=== PATIENT | female | born 1955 | race Caucasian/White ===

== ENCOUNTER 2020-05-14 01:18 | Inpatient (IN) | payer MEDICAID ==
[~2020-05-14] VITALS: Ht 160 cm; Wt 66.7 kg
[2020-05-14] VITALS (10 sets, daily range): BP systolic 115–173; BP diastolic 51–98
[2020-05-14] MEDS ORDERED: DEXTROSE 50% WATER 50ML SYRINGE IV ONE ×2 (02:10→02:15)
[2020-05-14 02:14] LABS: BASOPHILS % 1.3 % (0.0-2.0); EOSINOPHILS % 3.8 % (0.0-5.0); HEMATOCRIT. 36.8 % (36.0-48.0); HEMOGLOBIN. 12.4 g/dL (12.0-16.0); LYMPHOCYTES % 36.3 % (20.0-50.0); MEAN CORPUSCULAR HEMOGLOBIN 30.5 pg (28.0-32.0); MEAN CORPUSCULAR VOLUME 90.1 fL (81.0-99.0); MEAN PLATELET VOLUME 8.6 fl (7.4-10.4); MONOCYTES % 10.6 % (2.0-8.0); PLATELET 195 x1000/uL (130-400); RED BLOOD CELL COUNT 4.08 mill/uL (4.2-5.4); RED CELL DISTRIBUTION WIDTH 14.5 % (11.6-14.6)
[2020-05-14 02:19] LABS: CHLORIDE 102 mEq/L (98-107)
[2020-05-14] MEDS ORDERED: ONDANSETRON HCL 4MG/2ML INJ IV ONE (02:45)
[2020-05-14] MEDS ORDERED: DEXT 5%/0.45% NACL 1000ML 1,000 ML IV ONE (03:00)
[2020-05-14] MEDS ORDERED: DILTIAZEM HCL 5MG/ML 5ML VIAL IV SCH (03:00)
[2020-05-14] MEDS ORDERED: CLONIDINE 0.1MG TABLET PO PRN (06:15)
[2020-05-14] MEDS ORDERED: ONDANSETRON HCL 4MG/2ML INJ IV PRN (06:15)
[2020-05-14] MEDS ORDERED: DEXTROSE 50% WATER 50ML SYRINGE IV PRN (06:30)
[2020-05-14] MEDS: SEVELAMER CARBONATE 800 MG TABLET PO SCH ×3 (07:35→22:04)
[2020-05-14] MEDS: BLOOD SUGAR DIAGNOSTIC STRIP TEST SCH ×4 (07:58→21:00)
[2020-05-14] MEDS: AMLODIPINE 10MG TABLET PO SCH (08:16)
[2020-05-14] MEDS: FOLIC ACID/VITAMIN B COMP W-C TABLET PO SCH (08:16)
[2020-05-14] MEDS: INSULIN LISPRO 100 UNITS/ML SUBCUT SCH ×5 (08:18→22:05)
[2020-05-14 09:25] LABS: BASOPHILS % 0.9 % (0.0-2.0); EOSINOPHILS % 1.2 % (0.0-5.0); HEMOGLOBIN. 11.9 g/dL (12.0-16.0); LYMPHOCYTES % 17.2 % (20.0-50.0); MEAN CORPUSCULAR HEMOGLOBIN 30.1 pg (28.0-32.0); MEAN CORPUSCULAR VOLUME 91.2 fL (81.0-99.0); MEAN PLATELET VOLUME 8.6 fl (7.4-10.4); MONOCYTES % 4.9 % (2.0-8.0); NEUTROPHILS % 75.8 % (40.0-76.0); PLATELET 182 x1000/uL (130-400); RED BLOOD CELL COUNT 3.95 mill/uL (4.2-5.4); RED CELL DISTRIBUTION WIDTH 14.4 % (11.6-14.6)
[2020-05-14 09:36] LABS: CHLORIDE 100 mEq/L (98-107)
[2020-05-14 09:43] LABS: LDL CHOLESTEROL 30 mg/dL (5-100)
[2020-05-14 09:44] LABS: HDL CHOLESTEROL 49 mg/dL (40-59)
[2020-05-14] MEDS ORDERED: INSULIN LISPRO 100 UNITS/ML SUBCUT SCH (13:00)
[2020-05-14] MEDS ORDERED: INSULIN GLARGINE UD 100 UNITS/ML SYR SUBCUT NR (14:00)
[2020-05-14] MEDS ORDERED: LABE100T5 MT (14:12)
[2020-05-14] MEDS ORDERED: FERR325T6 MT (14:12)
[2020-05-14] MEDS ORDERED: LISI10TA5 MT (14:12)
[2020-05-14] MEDS ORDERED: LEVO125T8 MT (14:12)
[2020-05-14] MEDS ORDERED: HYDR-4135 PO (14:12)
[2020-05-14] MEDS ORDERED: ATOR40TA70 MT (14:12)
[2020-05-14] MEDS ORDERED: OMEP40CA12 MT (14:12)
[2020-05-14] MEDS ORDERED: BENA40TA9 MT (14:12)
[2020-05-14] MEDS ORDERED: SEVE800T8 MT (14:12)
[2020-05-14] MEDS ORDERED: AMLO5TAB88 MT (14:12)
[2020-05-14] MEDS ORDERED: INSU100V37 SQ (14:43)
[2020-05-14] MEDS: ATORVASTATIN CALCIUM 20MG TABLET PO SCH (22:04)
[2020-05-14] MEDS: INSULIN GLARGINE UD 100 UNITS/ML SYR SUBCUT SCH (22:08)
[2020-05-15] VITALS (13 sets, daily range): BP systolic 124–177; BP diastolic 64–81
[2020-05-15] MEDS: SEVELAMER CARBONATE 800 MG TABLET PO SCH ×3 (06:26→21:04)
[2020-05-15] MEDS: BLOOD SUGAR DIAGNOSTIC STRIP TEST SCH ×4 (07:30→20:55)
[2020-05-15] MEDS: INSULIN LISPRO 100 UNITS/ML SUBCUT SCH ×7 (08:00→21:07)
[2020-05-15] MEDS: FOLIC ACID/VITAMIN B COMP W-C TABLET PO SCH (08:56)
[2020-05-15] MEDS: AMLODIPINE 10MG TABLET PO SCH (08:57)
[2020-05-15] MEDS: INSULIN GLARGINE UD 100 UNITS/ML SYR SUBCUT SCH ×2 (13:03→21:06)
[2020-05-15] MEDS ORDERED: INSLIS SUBCUT (14:02)
[2020-05-15] MEDS ORDERED: LANTUSUD SUBCUT (14:02)
[2020-05-15] MEDS: ATORVASTATIN CALCIUM 20MG TABLET PO SCH (20:56)
== END 2020-05-15 23:39 | disposition home health service (06) | DRG 52 ==
LOC: ER 01:39 → 5EST 02:56 → ENRESERV 03:24 → 5EST 06:00
PROVIDERS: ADMIT Internal Medicine; ATTEND Internal Medicine
PROC: 5A1D70Z Performance of Urinary Filtration, Intermittent, Less than 6 Hours Per Day (ICD-10-PCS; principal; 2020-05-15)
DX: G93.41 Metabolic encephalopathy (principal); E11.649 Type 2 diabetes mellitus with hypoglycemia without coma; D64.9 Anemia, unspecified; E11.22 Type 2 diabetes mellitus with diabetic chronic kidney disease; E44.0 Moderate protein-calorie malnutrition; E78.5 Hyperlipidemia, unspecified; E87.1 Hypo-osmolality and hyponatremia; E87.6 Hypokalemia; I12.0 Hypertensive chronic kidney disease with stage 5 chronic kidney disease or end stage renal disease; I48.91 Unspecified atrial fibrillation; R68.0 Hypothermia, not associated with low environmental temperature; E21.1 Secondary hyperparathyroidism, not elsewhere classified; N18.6 End stage renal disease; Z82.49 Family history of ischemic heart disease and other diseases of the circulatory system; Z83.3 Family history of diabetes mellitus; Z99.2 Dependence on renal dialysis; Z68.26 Body mass index [BMI] 26.0-26.9, adult; Z79.4 Long term (current) use of insulin
CPT/HCPCS: 36415; 71045; 80053; 80061; 82962; 83036; 84145; 84484; 85025; 93005; 97116; 97162; 99291; J1815; J2405; J3490

== ENCOUNTER 2020-11-27 20:34 | Inpatient (IN) | payer MEDICAID ==
[~2020-11-27] VITALS: Ht 160 cm; Wt 65.3 kg
[~2020-11-27 20:34] MED LIST: AMLO5TAB88 MT; ATOR40TA70 MT; BENA40TA9 MT; FERR325T6 MT; HYDR-4135 PO; INSLIS SUBCUT; LABE100T5 MT; LANTUSUD SUBCUT; LEVO125T8 MT; LISI10TA26 MT; OMEP40CA12 MT; SEVE800T8 MT
[2020-11-27] MEDS ORDERED: ASPIRIN 81MG TABLET PO ONE (21:30)
[2020-11-27 21:50] LABS: BASOPHILS % 2.1 % (0.0-2.0); EOSINOPHILS % 5.1 % (0.0-5.0); HEMATOCRIT. 39.2 % (36.0-48.0); HEMOGLOBIN. 12.9 g/dL (12.0-16.0); LYMPHOCYTES % 21.3 % (20.0-50.0); MEAN CORPUSCULAR HEMOGLOBIN 30.8 pg (28.0-32.0); MEAN CORPUSCULAR VOLUME 93.4 fL (81.0-99.0); MEAN PLATELET VOLUME 8.7 fl (7.4-10.4); MONOCYTES % 11.1 % (2.0-8.0); NEUTROPHILS % 60.4 % (40.0-76.0); PLATELET 174 x1000/uL (130-400); RED CELL DISTRIBUTION WIDTH 15.2 % (11.6-14.6)
[2020-11-27 21:55] LABS: CHLORIDE 106 mEq/L (98-107)
[2020-11-27] MEDS ORDERED: MORPHINE SULFATE 4 MG/ML CPJ (NOT FOR IM USE) IV ONE (22:00)
[2020-11-27] MEDS ORDERED: FUROSEMIDE 100MG/10ML VIAL IV NR (22:17)
[2020-11-27] MEDS ORDERED: SODIUM BICARBONATE 8.4% 1 MEQ/ML 50ML SYR IV NR (22:30)
[2020-11-27] MEDS ORDERED: CALCIUM GLUCONATE 100MG/ML 10ML VIAL IV NR (22:30)
[2020-11-27] MEDS ORDERED: DEXTROSE 50% WATER 50ML SYRINGE IV NR (22:30)
[2020-11-27] MEDS ORDERED: INSULIN REGULAR (HUMULIN R) 300UNITS/3ML VIAL IV NR (22:30)
[2020-11-27] MEDS ORDERED: SODIUM POLYSTYRENE SULFONATE 15 G/60 ML BOT PO NR (22:30)
[2020-11-27] MEDS ORDERED: PIPERACILLIN/TAZOBACTAM 3.375GM/50ML PREMIX IV ONE (23:30)
[2020-11-27] MEDS ORDERED: VANCOMYCIN 1 G PREMIX 200 ML IV NR (23:30)
[2020-11-27] MEDS ORDERED: NICARDIPINE 50 MG in SODIUM CHLORIDE 0.9% 230 ML IV NR ×2 (23:41→23:45)
[2020-11-27] MEDS ORDERED: PIPERACILLIN/TAZ 3.375G PREMIX 50 ML IV NR (23:45)
[2020-11-28] VITALS (42 sets, daily range): BP systolic 51–171; BP diastolic 27–92
[2020-11-28 05:57] LABS: BASOPHILS % 2.7 % (0.0-2.0); HEMATOCRIT. 33.8 % (36.0-48.0); HEMOGLOBIN. 11.1 g/dL (12.0-16.0); MEAN CORPUSCULAR HEMOGLOBIN 30.1 pg (28.0-32.0); MEAN CORPUSCULAR VOLUME 91.8 fL (81.0-99.0); MEAN PLATELET VOLUME 7.6 fl (7.4-10.4); MONOCYTES % 14.7 % (2.0-8.0); NEUTROPHILS % 53.6 % (40.0-76.0); PLATELET 153 x1000/uL (130-400); RED BLOOD CELL COUNT 3.68 mill/uL (4.2-5.4); RED CELL DISTRIBUTION WIDTH 14.9 % (11.6-14.6)
[2020-11-28 06:10] LABS: PHOSPHORUS 6.2 mg/dL (2.5-4.9)
[2020-11-28] MEDS ORDERED: NICARDIPINE 50 MG in SODIUM CHLORIDE 0.9% 230 ML IV PRN (08:45)
[2020-11-28] MEDS: LEVOTHYROXINE SODIUM 125MCG TABLET PO SCH (08:50)
[2020-11-28] MEDS: SEVELAMER CARBONATE 800 MG TABLET PO SCH ×3 (08:50→16:30)
[2020-11-28] MEDS: FOLIC ACID/VITAMIN B COMP W-C TABLET PO SCH (08:50)
[2020-11-28] MEDS ORDERED: HYDRALAZINE HCL 25MG TABLET PO SCH (09:00)
[2020-11-28] MEDS ORDERED: TRAMADOL 50MG TABLET PO PRN (10:00)
[2020-11-28] MEDS: ONDANSETRON HCL 4MG/2ML INJ IV PRN ×3 (10:29→21:17)
[2020-11-28] MEDS ORDERED: MORPHINE SULFATE 2 MG/ML CPJ (NOT FOR IM USE) IV NR (11:37)
[2020-11-28] MEDS: POLYVINYL ALCOHOL OPHTH DROPS 15ML LEFTEYE SCH ×2 (12:29→18:00)
[2020-11-28] MEDS: NIFEDIPINE XL 60MG TAB PO SCH (12:29)
[2020-11-28] MEDS: LABETALOL HCL 200MG TABLET PO SCH ×2 (12:29→23:05)
[2020-11-28] MEDS: HYDROCODONE/ACETAMINOPHEN 5/325MG TABLET PO PRN ×2 (16:30→21:17)
[2020-11-28] MEDS: HYDRALAZINE HCL 25MG TABLET PO SCH (21:18)
[2020-11-28] MEDS: ATORVASTATIN CALCIUM 10MG TABLET PO SCH (21:18)
[2020-11-28 23:35] LABS: *AMPHETAMINES SCREEN URINE NEGATIVE (NEGATIVE); *BARBITURATES SCREEN URINE NEGATIVE (NEGATIVE); *COCAINE SCREEN URINE NEGATIVE (NEGATIVE)
[2020-11-28 23:36] LABS: *BENZODIAZEPINES SCREEN URINE NEGATIVE (NEGATIVE); CANNABINOID URINE SCREEN NEGATIVE (NEGATIVE); METHADONE URINE SCREEN NEGATIVE (NEGATIVE); OPIATES URINE SCREEN NEGATIVE (NEGATIVE); PHENCYCLIDINE URINE SCREEN NEGATIVE (NEGATIVE)
[2020-11-29] VITALS (28 sets, daily range): BP systolic 123–170; BP diastolic 49–83
[2020-11-29] MEDS: POLYVINYL ALCOHOL OPHTH DROPS 15ML LEFTEYE SCH ×5 (03:49→23:16)
[2020-11-29] MEDS: HYDROCODONE/ACETAMINOPHEN 5/325MG TABLET PO PRN ×2 (03:56→07:49)
[2020-11-29 05:39] LABS: HEMATOCRIT. 35.8 % (36.0-48.0); HEMOGLOBIN. 11.7 g/dL (12.0-16.0); MEAN CORPUSCULAR HEMOGLOBIN 30.2 pg (28.0-32.0); MEAN CORPUSCULAR VOLUME 92.6 fL (81.0-99.0); MEAN PLATELET VOLUME 8.2 fl (7.4-10.4); PLATELET 144 x1000/uL (130-400); RED BLOOD CELL COUNT 3.87 mill/uL (4.2-5.4); RED CELL DISTRIBUTION WIDTH 15.1 % (11.6-14.6)
[2020-11-29 05:55] LABS: PHOSPHORUS 6.8 mg/dL (2.5-4.9)
[2020-11-29] MEDS: LEVOTHYROXINE SODIUM 125MCG TABLET PO SCH (06:03)
[2020-11-29] MEDS: NIFEDIPINE XL 60MG TAB PO SCH (08:50)
[2020-11-29] MEDS: FOLIC ACID/VITAMIN B COMP W-C TABLET PO SCH (08:51)
[2020-11-29] MEDS: SEVELAMER CARBONATE 800 MG TABLET PO SCH ×3 (08:51→18:01)
[2020-11-29] MEDS: HYDRALAZINE HCL 25MG TABLET PO SCH (08:51)
[2020-11-29] MEDS: LABETALOL HCL 200MG TABLET PO SCH ×2 (08:51→20:41)
[2020-11-29] MEDS: ONDANSETRON HCL 4MG/2ML INJ IV PRN ×2 (10:58→18:26)
[2020-11-29 11:37] LABS: PLATELET ESTIMATE NORMAL
[2020-11-29] MEDS: LISINOPRIL 40MG TABLET PO SCH (14:39)
[2020-11-29] MEDS ORDERED: SODIUM POLYSTYRENE SULFONATE 15 G/60 ML BOT PO NR (15:30)
[2020-11-29] MEDS ORDERED: BISACODYL 10MG SUPP PR PRN (18:30)
[2020-11-29] MEDS: ATORVASTATIN CALCIUM 10MG TABLET PO SCH (20:41)
[2020-11-29] MEDS: HYDRALAZINE HCL 100MG TABLET PO SCH (20:42)
[2020-11-30] VITALS (7 sets, daily range): BP systolic 115–165; BP diastolic 60–86
[2020-11-30] MEDS ORDERED: DEXTROSE 50% WATER 50ML SYRINGE IV PRN (05:15)
[2020-11-30] MEDS: LEVOTHYROXINE SODIUM 125MCG TABLET PO SCH (06:25)
[2020-11-30] MEDS: POLYVINYL ALCOHOL OPHTH DROPS 15ML LEFTEYE SCH ×3 (06:25→18:01)
[2020-11-30] MEDS: BLOOD SUGAR DIAGNOSTIC STRIP TEST SCH ×4 (06:25→21:00)
[2020-11-30] MEDS: INSULIN LISPRO 100 UNITS/ML SUBCUT SCH ×4 (06:26→21:00)
[2020-11-30] MEDS ORDERED: FAMOTIDINE 20MG TABLET PO SCH (06:30)
[2020-11-30] MEDS: FAMOTIDINE 20MG TABLET PO SCH (06:36)
[2020-11-30 07:03] LABS: BASOPHILS % 1.8 % (0.0-2.0); EOSINOPHILS % 5.7 % (0.0-5.0); HEMATOCRIT. 33.1 % (36.0-48.0); LYMPHOCYTES % 24.5 % (20.0-50.0); MEAN CORPUSCULAR HEMOGLOBIN 30.5 pg (28.0-32.0); MEAN CORPUSCULAR VOLUME 92.4 fL (81.0-99.0); MEAN PLATELET VOLUME 8.8 fl (7.4-10.4); MONOCYTES % 14.4 % (2.0-8.0); NEUTROPHILS % 53.6 % (40.0-76.0); PLATELET 143 x1000/uL (130-400); RED BLOOD CELL COUNT 3.59 mill/uL (4.2-5.4); RED CELL DISTRIBUTION WIDTH 14.9 % (11.6-14.6)
[2020-11-30 08:08] LABS: PHOSPHORUS 8.6 mg/dL (2.5-4.9)
[2020-11-30] MEDS: SEVELAMER CARBONATE 800 MG TABLET PO SCH ×3 (08:42→18:00)
[2020-11-30] MEDS: NIFEDIPINE XL 90MG TAB PO SCH (08:43)
[2020-11-30] MEDS: ASPIRIN 81MG TABLET PO SCH (08:43)
[2020-11-30] MEDS: HYDRALAZINE HCL 100MG TABLET PO SCH ×2 (08:43→21:10)
[2020-11-30] MEDS: LISINOPRIL 40MG TABLET PO SCH (08:43)
[2020-11-30] MEDS: FOLIC ACID/VITAMIN B COMP W-C TABLET PO SCH (08:43)
[2020-11-30] MEDS: LABETALOL HCL 200MG TABLET PO SCH ×2 (08:43→21:09)
[2020-11-30] MEDS: HYDROCODONE/ACETAMINOPHEN 5/325MG TABLET PO PRN (18:00)
[2020-11-30] MEDS ORDERED: REGADENOSON 0.4 MG/5 ML IV NR (18:30)
[2020-11-30] MEDS: ATORVASTATIN CALCIUM 10MG TABLET PO SCH (21:09)
[2020-12-01] VITALS (7 sets, daily range): BP systolic 134–193; BP diastolic 55–88
[2020-12-01] MEDS: POLYVINYL ALCOHOL OPHTH DROPS 15ML LEFTEYE SCH ×5 (00:43→23:13)
[2020-12-01] MEDS: ACETAMINOPHEN 325MG TABLET PO PRN ×2 (02:32→10:33)
[2020-12-01] MEDS: LEVOTHYROXINE SODIUM 125MCG TABLET PO SCH (07:10)
[2020-12-01] MEDS: INSULIN LISPRO 100 UNITS/ML SUBCUT SCH ×4 (07:40→20:59)
[2020-12-01] MEDS: BLOOD SUGAR DIAGNOSTIC STRIP TEST SCH ×4 (07:51→20:58)
[2020-12-01] MEDS: HYDRALAZINE HCL 100MG TABLET PO SCH ×2 (09:09→20:57)
[2020-12-01 09:35] LABS: BASOPHILS % 1.5 % (0.0-2.0); EOSINOPHILS % 4.7 % (0.0-5.0); HEMATOCRIT. 35.6 % (36.0-48.0); HEMOGLOBIN. 11.6 g/dL (12.0-16.0); LYMPHOCYTES % 18.8 % (20.0-50.0); MEAN CORPUSCULAR VOLUME 92.2 fL (81.0-99.0); MEAN PLATELET VOLUME 8.5 fl (7.4-10.4); MONOCYTES % 11.9 % (2.0-8.0); NEUTROPHILS % 63.1 % (40.0-76.0); PLATELET 138 x1000/uL (130-400); RED BLOOD CELL COUNT 3.86 mill/uL (4.2-5.4); RED CELL DISTRIBUTION WIDTH 14.9 % (11.6-14.6)
[2020-12-01 09:52] LABS: PHOSPHORUS 6.2 mg/dL (2.5-4.9)
[2020-12-01] MEDS ORDERED: REGADENOSON 0.4 MG/5 ML IV ONE (11:16)
[2020-12-01] MEDS: FAMOTIDINE 20MG TABLET PO SCH (14:31)
[2020-12-01] MEDS: NIFEDIPINE XL 90MG TAB PO SCH (14:31)
[2020-12-01] MEDS: FOLIC ACID/VITAMIN B COMP W-C TABLET PO SCH (14:31)
[2020-12-01] MEDS: ASPIRIN 81MG TABLET PO SCH (14:32)
[2020-12-01] MEDS: SEVELAMER CARBONATE 800 MG TABLET PO SCH ×2 (14:32→17:42)
[2020-12-01] MEDS: LISINOPRIL 40MG TABLET PO SCH (14:32)
[2020-12-01] MEDS: METOCLOPRAMIDE HCL 10MG/2ML VIAL IV SCH ×3 (14:37→23:13)
[2020-12-01] MEDS: LABETALOL HCL 300MG TABLET PO SCH ×2 (17:43→20:58)
[2020-12-01] MEDS: ATORVASTATIN CALCIUM 10MG TABLET PO SCH (20:57)
[2020-12-02] VITALS: BP 152/88
[2020-12-02 04:00] VITALS: BP 150/61
[2020-12-02] MEDS: METOCLOPRAMIDE HCL 10MG/2ML VIAL IV SCH ×2 (05:12→13:41)
[2020-12-02] MEDS: POLYVINYL ALCOHOL OPHTH DROPS 15ML LEFTEYE SCH ×2 (05:12→13:41)
[2020-12-02] MEDS: BLOOD SUGAR DIAGNOSTIC STRIP TEST SCH ×2 (06:14→12:10)
[2020-12-02] MEDS: INSULIN LISPRO 100 UNITS/ML SUBCUT SCH ×2 (06:14→13:43)
[2020-12-02] MEDS: LEVOTHYROXINE SODIUM 125MCG TABLET PO SCH (06:14)
[2020-12-02 07:02] LABS: BASOPHILS % 2.4 % (0.0-2.0); HEMATOCRIT. 33.9 % (36.0-48.0); HEMOGLOBIN. 11.2 g/dL (12.0-16.0); LYMPHOCYTES % 25.2 % (20.0-50.0); MEAN CORPUSCULAR HEMOGLOBIN 30.4 pg (28.0-32.0); MEAN CORPUSCULAR VOLUME 92.1 fL (81.0-99.0); MEAN PLATELET VOLUME 8.6 fl (7.4-10.4); MONOCYTES % 10.8 % (2.0-8.0); NEUTROPHILS % 56.6 % (40.0-76.0); PLATELET 134 x1000/uL (130-400); RED BLOOD CELL COUNT 3.68 mill/uL (4.2-5.4); RED CELL DISTRIBUTION WIDTH 14.6 % (11.6-14.6)
[2020-12-02 08:00] VITALS: BP 172/57
[2020-12-02 08:03] LABS: PHOSPHORUS 6.6 mg/dL (2.5-4.9)
[2020-12-02] MEDS: ACETAMINOPHEN 325MG TABLET PO PRN (08:33)
[2020-12-02] MEDS: SEVELAMER CARBONATE 800 MG TABLET PO SCH ×2 (08:33→13:41)
[2020-12-02] MEDS: FAMOTIDINE 20MG TABLET PO SCH (08:33)
[2020-12-02] MEDS: FOLIC ACID/VITAMIN B COMP W-C TABLET PO SCH (08:33)
[2020-12-02] MEDS: ASPIRIN 81MG TABLET PO SCH ×2 (08:33→08:48)
[2020-12-02] MEDS: HYDRALAZINE HCL 100MG TABLET PO SCH ×2 (08:35→08:45)
[2020-12-02] MEDS: LISINOPRIL 40MG TABLET PO SCH ×2 (08:35→08:47)
[2020-12-02] MEDS: NIFEDIPINE XL 60MG TAB PO SCH ×2 (08:35→08:46)
[2020-12-02] MEDS: LABETALOL HCL 200MG TABLET PO SCH ×2 (08:36→08:46)
[2020-12-02 12:00] VITALS: BP 154/58
[2020-12-02 14:28] VITALS: BP 148/65
== END 2020-12-02 17:06 | disposition home or self-care (01) | DRG 425 ==
LOC: ER 20:34 → MICUSO 23:17 → ENRESERV 23:48 → CANRESERV 23:48 → ENRESERV 11-28 02:03 → EDBEDREQDT 11-28 06:49 → EDBEDREQTM 11-28 06:49 → EDBEDREQSVC 11-28 06:49 → ENRESERV 11-28 07:02 → MICUSO 11-29 06:10 → 8WST 11-29 15:51
PROVIDERS: ADMIT Internal Medicine; ATTEND Internal Medicine
PROC: 5A1D70Z Performance of Urinary Filtration, Intermittent, Less than 6 Hours Per Day (ICD-10-PCS; 2020-11-28)
PROC: 5A1D70Z Performance of Urinary Filtration, Intermittent, Less than 6 Hours Per Day (ICD-10-PCS; 2020-11-29)
PROC: 5A1D70Z Performance of Urinary Filtration, Intermittent, Less than 6 Hours Per Day (ICD-10-PCS; principal; 2020-12-02)
DX: E87.5 Hyperkalemia (principal); M94.0 Chondrocostal junction syndrome [Tietze]; J96.01 Acute respiratory failure with hypoxia; I13.2 Hypertensive heart and chronic kidney disease with heart failure and with stage 5 chronic kidney disease, or end stage renal disease; E87.1 Hypo-osmolality and hyponatremia; N18.6 End stage renal disease; E78.5 Hyperlipidemia, unspecified; E03.9 Hypothyroidism, unspecified; E11.36 Type 2 diabetes mellitus with diabetic cataract; E11.22 Type 2 diabetes mellitus with diabetic chronic kidney disease; I50.9 Heart failure, unspecified; E87.2 Acidosis; D64.9 Anemia, unspecified; D72.10 Eosinophilia, unspecified; E11.65 Type 2 diabetes mellitus with hyperglycemia; E78.00 Pure hypercholesterolemia, unspecified; E11.39 Type 2 diabetes mellitus with other diabetic ophthalmic complication; G90.8 Other disorders of autonomic nervous system; H42 Glaucoma in diseases classified elsewhere; N25.81 Secondary hyperparathyroidism of renal origin; I16.0 Hypertensive urgency; K21.9 Gastro-esophageal reflux disease without esophagitis; G89.29 Other chronic pain; M54.5 Low back pain; L29.9 Pruritus, unspecified; Z99.2 Dependence on renal dialysis; Z20.822 Contact with and (suspected) exposure to COVID-19; Z86.16 Personal history of COVID-19; F17.200 Nicotine dependence, unspecified, uncomplicated; Z79.899 Other long term (current) drug therapy; Z82.49 Family history of ischemic heart disease and other diseases of the circulatory system; Z83.3 Family history of diabetes mellitus; Z87.01 Personal history of pneumonia (recurrent); Z91.15 Patient's noncompliance with renal dialysis; Z95.810 Presence of automatic (implantable) cardiac defibrillator; Z79.4 Long term (current) use of insulin
CPT/HCPCS: 36415; 71045; 74018; 78452; 78580; 80048; 80053; 80305; 82962; 83036; 83605; 83735; 83880; 84100; 84132; 84443; 84484; 85025; 85379; 93005; 93017; 93306; 97116; 97162; 97530; 99291; A9500; A9558; J0610; J1815; J1940; J2270; J2405; J2543; J2765; J2785; J3370; J3490; J7050; U0003; A4315

== ENCOUNTER 2020-12-20 08:52 | Inpatient (IN) | payer MEDICAID ==
[~2020-12-20] VITALS: Ht 160 cm; Wt 66.7 kg
[2020-12-20] MEDS ORDERED: TETRACAINE 0.5% OPHTH DROPS 4ML BOTHEYE ONE (09:45)
[2020-12-20] MEDS ORDERED: FLUORESCEIN SODIUM 1MG/STRIP LEFTEYE ONE (10:00)
[2020-12-20] MEDS ORDERED: ONDANSETRON HCL 4MG/2ML INJ IV ONE ×2 (10:00→13:15)
[2020-12-20] MEDS ORDERED: MORPHINE SULFATE 2 MG/ML CPJ (NOT FOR IM USE) IV ONE (10:00)
[2020-12-20 10:09] LABS: BASOPHILS % 1.9 % (0.0-2.0); EOSINOPHILS % 4.5 % (0.0-5.0); HEMATOCRIT. 32.3 % (36.0-48.0); HEMOGLOBIN. 10.8 g/dL (12.0-16.0); LYMPHOCYTES % 16.1 % (20.0-50.0); MEAN CORPUSCULAR HEMOGLOBIN 29.8 pg (28.0-32.0); MEAN CORPUSCULAR VOLUME 89.3 fL (81.0-99.0); MONOCYTES % 9.4 % (2.0-8.0); NEUTROPHILS % 68.1 % (40.0-76.0); PLATELET 136 x1000/uL (130-400); RED BLOOD CELL COUNT 3.62 mill/uL (4.2-5.4); RED CELL DISTRIBUTION WIDTH 15.1 % (11.6-14.6)
[2020-12-20 10:13] LABS: CHLORIDE 96 mEq/L (98-107)
[2020-12-20 10:17] LABS: PROTHROMBIN TIME 11.1 sec (9.6-11.0)
[2020-12-20] MEDS ORDERED: HYDRALAZINE 20MG/ML VIAL IV ONE (12:15)
[2020-12-20] MEDS ORDERED: LEVO125T8 MT ×2 (12:49)
[2020-12-20] MEDS ORDERED: SEVE800T8 MT ×2 (12:49)
[2020-12-20] MEDS ORDERED: FERR324T4 MT ×2 (12:49)
[2020-12-20] MEDS ORDERED: OMEP40CA12 MT ×2 (12:49)
[2020-12-20] MEDS ORDERED: ATOR40TA70 MT ×2 (12:49)
[2020-12-20] MEDS ORDERED: INSU100I28 SQ (12:49)
[2020-12-20] MEDS ORDERED: HYDR-4135 MT ×2 (12:49)
[2020-12-20] MEDS ORDERED: LISI10TA26 MT ×2 (12:49)
[2020-12-20] MEDS ORDERED: INSU100V37 SQ (12:49)
[2020-12-20] MEDS ORDERED: AMLO5TAB88 MT ×2 (12:49)
[2020-12-20] MEDS ORDERED: LABE100T5 MT ×2 (12:49)
[2020-12-20] MEDS ORDERED: DEXTROSE 50% WATER 50ML SYRINGE IV PRN (16:45)
[2020-12-20] MEDS: BENAZEPRIL 10MG TABLET PO SCH (17:56)
[2020-12-20] MEDS: BLOOD SUGAR DIAGNOSTIC STRIP TEST SCH ×2 (17:58→22:14)
[2020-12-20] MEDS: POLYVINYL ALCOHOL OPHTH DROPS 15ML LEFTEYE SCH (18:00)
[2020-12-20] MEDS: INSULIN LISPRO 100 UNITS/ML SUBCUT SCH ×2 (18:20→22:15)
[2020-12-20 21:45] VITALS: BP 188/100
[2020-12-20] MEDS: NIFEDIPINE XL 60MG TAB PO SCH (22:13)
[2020-12-20] MEDS: CLONIDINE 0.1MG TABLET PO PRN (22:14)
[2020-12-20] MEDS: TRAMADOL 50MG TABLET PO PRN (22:14)
[2020-12-21] VITALS: BP 129/50
[2020-12-21] MEDS: POLYVINYL ALCOHOL OPHTH DROPS 15ML LEFTEYE SCH ×4 (02:56→18:29)
[2020-12-21 04:00] VITALS: BP 139/58
[2020-12-21] MEDS: BLOOD SUGAR DIAGNOSTIC STRIP TEST SCH ×4 (07:10→21:38)
[2020-12-21 07:36] LABS: HEMATOCRIT. 31.1 % (36.0-48.0); HEMOGLOBIN. 10.1 g/dL (12.0-16.0); MEAN CORPUSCULAR HEMOGLOBIN 29.5 pg (28.0-32.0); MEAN CORPUSCULAR VOLUME 90.9 fL (81.0-99.0); MEAN PLATELET VOLUME 8.5 fl (7.4-10.4); PLATELET 132 x1000/uL (130-400); RED BLOOD CELL COUNT 3.42 mill/uL (4.2-5.4); RED CELL DISTRIBUTION WIDTH 15.1 % (11.6-14.6)
[2020-12-21 08:00] VITALS: BP 139/55
[2020-12-21] MEDS: NIFEDIPINE XL 60MG TAB PO SCH ×2 (09:42→22:29)
[2020-12-21] MEDS: BENAZEPRIL 10MG TABLET PO SCH (09:43)
[2020-12-21] MEDS: INSULIN LISPRO 100 UNITS/ML SUBCUT SCH ×4 (09:51→21:00)
[2020-12-21 12:00] VITALS: BP 136/53
[2020-12-21 14:46] LABS: PLATELET ESTIMATE NORMAL
[2020-12-21 16:00] VITALS: BP 161/58
[2020-12-21] MEDS: DORZOLAMIDE 2% OPHTH 10 ML BOTTLE LEFTEYE SCH ×2 (16:29→22:27)
[2020-12-21] MEDS: CLONIDINE 0.1MG TABLET PO PRN (16:41)
[2020-12-21] MEDS: INSULIN GLARGINE UD 100 UNITS/ML SYR SUBCUT SCH (22:26)
[2020-12-21] MEDS: TIMOLOL MALEATE 0.5% OPHTH DROPS 5ML LEFTEYE SCH (22:27)
[2020-12-21] MEDS: LATANOPROST 0.005% OPHTH DROPS 2.5ML LEFTEYE SCH (22:27)
[2020-12-22] MEDS: POLYVINYL ALCOHOL OPHTH DROPS 15ML LEFTEYE SCH ×5 (00:41→23:57)
[2020-12-22 04:00] VITALS: BP 134/58
[2020-12-22] MEDS: BLOOD SUGAR DIAGNOSTIC STRIP TEST SCH ×4 (05:46→21:00)
[2020-12-22] MEDS: LEVOTHYROXINE SODIUM 125MCG TABLET PO SCH (06:00)
[2020-12-22] MEDS: DORZOLAMIDE 2% OPHTH 10 ML BOTTLE LEFTEYE SCH ×3 (06:00→21:45)
[2020-12-22] MEDS: INSULIN LISPRO 100 UNITS/ML SUBCUT SCH ×4 (07:40→21:00)
[2020-12-22 08:00] VITALS: BP 141/51
[2020-12-22] MEDS: TRAMADOL 50MG TABLET PO PRN (08:59)
[2020-12-22] MEDS: BENAZEPRIL 10MG TABLET PO SCH (08:59)
[2020-12-22] MEDS: NIFEDIPINE XL 60MG TAB PO SCH ×2 (08:59→20:28)
[2020-12-22] MEDS: SEVELAMER CARBONATE 800 MG TABLET PO SCH ×3 (09:00→17:27)
[2020-12-22] MEDS: LABETALOL HCL 100MG TABLET PO SCH ×2 (09:00→20:29)
[2020-12-22] MEDS ORDERED: AMLODIPINE 5MG TABLET PO SCH ×2 (09:00)
[2020-12-22] MEDS: ATORVASTATIN CALCIUM 40MG TABLET PO SCH (09:00)
[2020-12-22] MEDS ORDERED: HYDRALAZINE HCL 50MG TABLET PO SCH (09:00)
[2020-12-22] MEDS: TIMOLOL MALEATE 0.5% OPHTH DROPS 5ML LEFTEYE SCH ×2 (09:01→20:28)
[2020-12-22] MEDS: INSULIN GLARGINE UD 100 UNITS/ML SYR SUBCUT SCH ×2 (09:40→21:33)
[2020-12-22 12:00] VITALS: BP 129/51
[2020-12-22] MEDS: ONDANSETRON HCL 4MG/2ML INJ IV PRN (12:51)
[2020-12-22 16:00] VITALS: BP 156/62
[2020-12-22 20:00] VITALS: BP 168/77
[2020-12-22] MEDS: ENOXAPARIN 30MG/0.3ML SYR SUBCUT SCH (20:00)
[2020-12-22] MEDS: LATANOPROST 0.005% OPHTH DROPS 2.5ML LEFTEYE SCH (20:28)
[2020-12-23] VITALS: BP 155/89
[2020-12-23 04:00] VITALS: BP 152/55
[2020-12-23] MEDS: DORZOLAMIDE 2% OPHTH 10 ML BOTTLE LEFTEYE SCH ×3 (06:20→21:02)
[2020-12-23] MEDS: POLYVINYL ALCOHOL OPHTH DROPS 15ML LEFTEYE SCH ×4 (06:20→22:55)
[2020-12-23] MEDS: LEVOTHYROXINE SODIUM 125MCG TABLET PO SCH (06:22)
[2020-12-23] MEDS: BLOOD SUGAR DIAGNOSTIC STRIP TEST SCH ×4 (06:26→19:54)
[2020-12-23 07:24] LABS: BASOPHILS % 0.8 % (0.0-2.0); EOSINOPHILS % 6.4 % (0.0-5.0); HEMATOCRIT. 30.8 % (36.0-48.0); LYMPHOCYTES % 24.2 % (20.0-50.0); MEAN CORPUSCULAR HEMOGLOBIN 29.4 pg (28.0-32.0); MEAN CORPUSCULAR VOLUME 90.6 fL (81.0-99.0); MEAN PLATELET VOLUME 8.9 fl (7.4-10.4); MONOCYTES % 14.4 % (2.0-8.0); NEUTROPHILS % 54.2 % (40.0-76.0); PLATELET 148 x1000/uL (130-400); RED CELL DISTRIBUTION WIDTH 14.6 % (11.6-14.6)
[2020-12-23] MEDS: INSULIN LISPRO 100 UNITS/ML SUBCUT SCH ×4 (07:40→20:17)
[2020-12-23 08:00] VITALS: BP 169/64
[2020-12-23 08:26] LABS: PHOSPHORUS 7.6 mg/dL (2.5-4.9)
[2020-12-23] MEDS: SEVELAMER CARBONATE 800 MG TABLET PO SCH ×3 (08:41→16:52)
[2020-12-23] MEDS: NIFEDIPINE XL 60MG TAB PO SCH ×2 (08:42→20:59)
[2020-12-23] MEDS: LISINOPRIL 10MG TABLET PO SCH (08:43)
[2020-12-23] MEDS: ATORVASTATIN CALCIUM 40MG TABLET PO SCH (08:43)
[2020-12-23] MEDS: LABETALOL HCL 100MG TABLET PO SCH ×2 (08:43→20:59)
[2020-12-23] MEDS: TIMOLOL MALEATE 0.5% OPHTH DROPS 5ML LEFTEYE SCH ×2 (08:45→21:02)
[2020-12-23] MEDS ORDERED: FUROSEMIDE 100MG/10ML VIAL IVP NR (09:15)
[2020-12-23] MEDS: INSULIN GLARGINE UD 100 UNITS/ML SYR SUBCUT SCH (10:00)
[2020-12-23] MEDS: ONDANSETRON HCL 4MG/2ML INJ IV PRN (10:53)
[2020-12-23] MEDS ORDERED: SODIUM POLYSTYRENE SULFONATE 15 G/60 ML BOT PO NR (11:00)
[2020-12-23 12:00] VITALS: BP 146/68
[2020-12-23 16:00] VITALS: BP 132/72
[2020-12-23] MEDS ORDERED: ENOXAPARIN 30MG/0.3ML SYR SUBCUT SCH (18:30)
[2020-12-23] MEDS: ENOXAPARIN 30MG/0.3ML SYR SUBCUT SCH (20:00)
[2020-12-23] MEDS: CLONIDINE 0.1MG TABLET PO PRN (20:58)
[2020-12-23] MEDS: LATANOPROST 0.005% OPHTH DROPS 2.5ML LEFTEYE SCH (21:02)
[2020-12-23 22:00] VITALS: BP 200/76
[2020-12-23] MEDS: TRAMADOL 50MG TABLET PO PRN (22:52)
[2020-12-24] VITALS: BP 189/66
[2020-12-24] MEDS: ACETAMINOPHEN 325MG TABLET PO PRN (00:43)
[2020-12-24] MEDS: CLONIDINE 0.1MG TABLET PO PRN ×2 (01:40→23:50)
[2020-12-24 01:42] VITALS: BP 189/66
[2020-12-24 04:00] VITALS: BP 147/58
[2020-12-24] MEDS: BLOOD SUGAR DIAGNOSTIC STRIP TEST SCH ×4 (05:24→20:54)
[2020-12-24] MEDS: DORZOLAMIDE 2% OPHTH 10 ML BOTTLE LEFTEYE SCH ×3 (05:52→21:08)
[2020-12-24] MEDS: LEVOTHYROXINE SODIUM 125MCG TABLET PO SCH (05:52)
[2020-12-24] MEDS: INSULIN LISPRO 100 UNITS/ML SUBCUT SCH ×4 (05:54→20:54)
[2020-12-24] MEDS: POLYVINYL ALCOHOL OPHTH DROPS 15ML LEFTEYE SCH ×4 (05:55→23:51)
[2020-12-24 07:11] LABS: HEMATOCRIT. 27.8 % (36.0-48.0); HEMOGLOBIN. 9.3 g/dL (12.0-16.0); MEAN CORPUSCULAR HEMOGLOBIN 30.4 pg (28.0-32.0); MEAN CORPUSCULAR VOLUME 90.8 fL (81.0-99.0); MEAN PLATELET VOLUME 8.7 fl (7.4-10.4); PLATELET 125 x1000/uL (130-400); RED BLOOD CELL COUNT 3.06 mill/uL (4.2-5.4); RED CELL DISTRIBUTION WIDTH 14.5 % (11.6-14.6)
[2020-12-24] MEDS: SEVELAMER CARBONATE 800 MG TABLET PO SCH ×3 (08:04→17:24)
[2020-12-24 08:26] LABS: PHOSPHORUS 4.4 mg/dL (2.5-4.9)
[2020-12-24] MEDS: LISINOPRIL 10MG TABLET PO SCH (08:33)
[2020-12-24] MEDS: ATORVASTATIN CALCIUM 40MG TABLET PO SCH (08:33)
[2020-12-24] MEDS: LABETALOL HCL 100MG TABLET PO SCH ×2 (08:34→21:06)
[2020-12-24] MEDS: NIFEDIPINE XL 60MG TAB PO SCH ×2 (08:34→21:06)
[2020-12-24] MEDS: TIMOLOL MALEATE 0.5% OPHTH DROPS 5ML LEFTEYE SCH ×2 (08:37→21:08)
[2020-12-24 16:00] VITALS: BP 147/93
[2020-12-24 19:42] LABS: PLATELET ESTIMATE SLIGHTLY DECREASED
[2020-12-24 20:00] VITALS: BP 178/63
[2020-12-24] MEDS: ENOXAPARIN 30MG/0.3ML SYR SUBCUT SCH ×2 (20:00→21:07)
[2020-12-24] MEDS: LATANOPROST 0.005% OPHTH DROPS 2.5ML LEFTEYE SCH (21:08)
[2020-12-25] VITALS (8 sets, daily range): BP systolic 135–196; BP diastolic 59–83
[2020-12-25] MEDS ORDERED: MAGNESIUM/ALUMINUM HYDROXIDE/SIMETHICONE 30ML UDC PO PRN (01:30)
[2020-12-25] MEDS: CLONIDINE 0.2MG TABLET PO PRN ×3 (01:37→17:19)
[2020-12-25] MEDS: POLYVINYL ALCOHOL OPHTH DROPS 15ML LEFTEYE SCH ×4 (05:48→23:48)
[2020-12-25] MEDS: DORZOLAMIDE 2% OPHTH 10 ML BOTTLE LEFTEYE SCH ×3 (05:48→21:32)
[2020-12-25] MEDS: LEVOTHYROXINE SODIUM 125MCG TABLET PO SCH (06:10)
[2020-12-25] MEDS: INSULIN LISPRO 100 UNITS/ML SUBCUT SCH ×4 (06:13→21:30)
[2020-12-25] MEDS: BLOOD SUGAR DIAGNOSTIC STRIP TEST SCH ×4 (06:14→21:31)
[2020-12-25 06:57] LABS: HEMATOCRIT. 29.2 % (36.0-48.0); HEMOGLOBIN. 9.7 g/dL (12.0-16.0); MEAN CORPUSCULAR HEMOGLOBIN 30.4 pg (28.0-32.0); MEAN CORPUSCULAR VOLUME 91.3 fL (81.0-99.0); MEAN PLATELET VOLUME 8.4 fl (7.4-10.4); PLATELET 128 x1000/uL (130-400); RED BLOOD CELL COUNT 3.19 mill/uL (4.2-5.4); RED CELL DISTRIBUTION WIDTH 14.7 % (11.6-14.6)
[2020-12-25] MEDS: LABETALOL HCL 100MG TABLET PO SCH ×2 (08:07→21:28)
[2020-12-25] MEDS: SEVELAMER CARBONATE 800 MG TABLET PO SCH ×3 (08:07→17:18)
[2020-12-25] MEDS: NIFEDIPINE XL 60MG TAB PO SCH ×2 (08:08→21:28)
[2020-12-25] MEDS: ATORVASTATIN CALCIUM 40MG TABLET PO SCH (08:08)
[2020-12-25] MEDS: LISINOPRIL 10MG TABLET PO SCH (08:11)
[2020-12-25] MEDS: TIMOLOL MALEATE 0.5% OPHTH DROPS 5ML LEFTEYE SCH ×2 (08:14→21:32)
[2020-12-25 09:04] LABS: PHOSPHORUS 5.9 mg/dL (2.5-4.9)
[2020-12-25] MEDS ORDERED: HYDRALAZINE 20MG/ML VIAL IV NR ×2 (10:00→19:45)
[2020-12-25 11:20] LABS: PLATELET ESTIMATE SLIGHTLY DECREASED
[2020-12-25] MEDS ORDERED: TIMO15DR12 LEFTEYE (16:29)
[2020-12-25] MEDS ORDERED: XALAO LEFTEYE (16:29)
[2020-12-25] MEDS ORDERED: TRU10 LEFTEYE (16:29)
[2020-12-25] MEDS: ACETAMINOPHEN 325MG TABLET PO PRN (17:20)
[2020-12-25] MEDS ORDERED: HYDRALAZINE HCL 50MG TABLET PO SCH (21:00)
[2020-12-25] MEDS: ENOXAPARIN 30MG/0.3ML SYR SUBCUT SCH (21:28)
[2020-12-25] MEDS: HYDRALAZINE HCL 50MG TABLET PO SCH (21:30)
[2020-12-25] MEDS: LATANOPROST 0.005% OPHTH DROPS 2.5ML LEFTEYE SCH (21:31)
[2020-12-26] VITALS: BP 160/67
[2020-12-26 04:00] VITALS: BP 143/58
[2020-12-26] MEDS: DORZOLAMIDE 2% OPHTH 10 ML BOTTLE LEFTEYE SCH ×2 (06:09→13:52)
[2020-12-26] MEDS: POLYVINYL ALCOHOL OPHTH DROPS 15ML LEFTEYE SCH ×3 (06:09→18:12)
[2020-12-26] MEDS: INSULIN LISPRO 100 UNITS/ML SUBCUT SCH ×4 (06:09→21:48)
[2020-12-26] MEDS: LEVOTHYROXINE SODIUM 125MCG TABLET PO SCH (06:10)
[2020-12-26] MEDS: HYDRALAZINE HCL 50MG TABLET PO SCH (06:10)
[2020-12-26] MEDS: BLOOD SUGAR DIAGNOSTIC STRIP TEST SCH ×4 (06:10→21:38)
[2020-12-26 07:38] LABS: BASOPHILS % 1.1 % (0.0-2.0); EOSINOPHILS % 5.9 % (0.0-5.0); HEMATOCRIT. 31.6 % (36.0-48.0); HEMOGLOBIN. 10.2 g/dL (12.0-16.0); LYMPHOCYTES % 23.6 % (20.0-50.0); MEAN CORPUSCULAR HEMOGLOBIN 29.3 pg (28.0-32.0); MEAN CORPUSCULAR VOLUME 90.6 fL (81.0-99.0); MEAN PLATELET VOLUME 8.3 fl (7.4-10.4); MONOCYTES % 13.5 % (2.0-8.0); NEUTROPHILS % 55.9 % (40.0-76.0); PLATELET 148 x1000/uL (130-400); RED BLOOD CELL COUNT 3.48 mill/uL (4.2-5.4); RED CELL DISTRIBUTION WIDTH 15.3 % (11.6-14.6)
[2020-12-26 07:47] LABS: PHOSPHORUS 4.6 mg/dL (2.5-4.9)
[2020-12-26 08:00] VITALS: BP 177/65
[2020-12-26] MEDS: SEVELAMER CARBONATE 800 MG TABLET PO SCH ×3 (08:48→18:12)
[2020-12-26] MEDS: TIMOLOL MALEATE 0.5% OPHTH DROPS 5ML LEFTEYE SCH ×2 (08:48→21:32)
[2020-12-26] MEDS: ACETAMINOPHEN 325MG TABLET PO PRN ×2 (08:49→21:45)
[2020-12-26] MEDS: NIFEDIPINE XL 60MG TAB PO SCH ×2 (08:49→21:27)
[2020-12-26] MEDS: ATORVASTATIN CALCIUM 40MG TABLET PO SCH (08:49)
[2020-12-26] MEDS: LABETALOL HCL 100MG TABLET PO SCH ×2 (08:49→21:27)
[2020-12-26] MEDS ORDERED: HYDRALAZINE HCL 100MG TABLET PO SCH (14:00)
[2020-12-26] MEDS ORDERED: TRAMADOL 50MG TABLET PO PRN (15:30)
[2020-12-26 16:24] LABS: BG BASE EXCESS 5.1 mmol/L (-2.0-2.0); BG CARBOXYHEMOGLOBIN 0.3 % (0.5-1.5); BG DEOXYHEMOGLOBIN 5.1 % (0.0-5.0); BG FRACTION INSPIRED OXYGEN 21; BG HCO3 ACT 29.4 mmol/L (22.0-26.0); BG METHEMOGLOBIN 0.3 % (0.0-1.5); BG OXYGEN SATURATION 94.9 % (92.0-98.5); BG OXYHEMOGLOBIN 94.3 % (94.0-97.0); BG PCO2 42.2 mmHg (35.0-45.0); BG PH 7.461 (7.350-7.450); BG PO2 71.7 mmHg (75.0-100.0); BG SAMPLE SITE LEFT BRACHIAL; BG TOTAL HEMOGLOBIN 10.4 g/dL (12.0-18.0); BG VENT MODE ROOM AIR
[2020-12-26 19:14] VITALS: BP 159/45
[2020-12-26 20:00] VITALS: BP 166/66
[2020-12-26] MEDS: ENOXAPARIN 30MG/0.3ML SYR SUBCUT SCH (21:25)
[2020-12-26] MEDS: LATANOPROST 0.005% OPHTH DROPS 2.5ML LEFTEYE SCH (21:32)
== END 2020-12-26 22:25 | disposition home or self-care (01) | DRG 82 ==
LOC: ER 08:57 → 8WST 13:24 → EDBEDREQ 13:32 → CANRESERV 16:15 → ENRESERV 16:15
PROVIDERS: ADMIT Internal Medicine; ATTEND Internal Medicine
PROC: 5A1D70Z Performance of Urinary Filtration, Intermittent, Less than 6 Hours Per Day (ICD-10-PCS; principal; 2020-12-23)
PROC: 5A1D70Z Performance of Urinary Filtration, Intermittent, Less than 6 Hours Per Day (ICD-10-PCS; 2020-12-25)
PROC: 5A1D70Z Performance of Urinary Filtration, Intermittent, Less than 6 Hours Per Day (ICD-10-PCS; 2020-12-26)
DX: E11.319 Type 2 diabetes mellitus with unspecified diabetic retinopathy without macular edema (principal); E87.8 Other disorders of electrolyte and fluid balance, not elsewhere classified; I12.0 Hypertensive chronic kidney disease with stage 5 chronic kidney disease or end stage renal disease; E87.1 Hypo-osmolality and hyponatremia; E11.22 Type 2 diabetes mellitus with diabetic chronic kidney disease; E11.649 Type 2 diabetes mellitus with hypoglycemia without coma; E87.5 Hyperkalemia; H57.12 Ocular pain, left eye; H40.9 Unspecified glaucoma; N18.6 End stage renal disease; N25.81 Secondary hyperparathyroidism of renal origin; D64.9 Anemia, unspecified; D72.819 Decreased white blood cell count, unspecified; E03.9 Hypothyroidism, unspecified; E78.5 Hyperlipidemia, unspecified; Z20.822 Contact with and (suspected) exposure to COVID-19; E78.00 Pure hypercholesterolemia, unspecified; Z82.49 Family history of ischemic heart disease and other diseases of the circulatory system; Z99.2 Dependence on renal dialysis; Z79.890 Hormone replacement therapy; Z79.899 Other long term (current) drug therapy; Z79.4 Long term (current) use of insulin
CPT/HCPCS: 36415; 36600; 71045; 80048; 80053; 82375; 82805; 82962; 83735; 84100; 84132; 85025; 85651; 87426; 93005; 93970; 94618; 97162; 99285; A6261; C1893; J0360; J1650; J1815; J1940; J2270; J2405

== ENCOUNTER 2021-07-13 13:44 | Inpatient (IN) | payer MEDICAID, OTHER ==
[~2021-07-13] VITALS: Ht 162.6 cm; Wt 71.2 kg
[~2021-07-13 13:44] MED LIST changes: +INSU100I28 SQ; +INSU100V37 SQ; -OMEP40CA12 MT; +OMEP40CA20 MT; +TIMO15DR12 LEFTEYE; +TRU10 LEFTEYE; +XALAO LEFTEYE
[2021-07-13] MEDS ORDERED: ONDANSETRON HCL 4MG/2ML INJ IV STA (14:02)
[2021-07-13 15:02] LABS: BASOPHILS % 1.4 % (0.0-2.0); EOSINOPHILS % 2.9 % (0.0-5.0); HEMATOCRIT. 30.5 % (36.0-48.0); LYMPHOCYTES % 15.8 % (20.0-50.0); MEAN CORPUSCULAR HEMOGLOBIN 30.2 pg (28.0-32.0); MEAN CORPUSCULAR VOLUME 91.8 fL (81.0-99.0); MEAN PLATELET VOLUME 8.2 fl (7.4-10.4); MONOCYTES % 8.8 % (2.0-8.0); NEUTROPHILS % 71.1 % (40.0-76.0); PLATELET 158 x1000/uL (130-400); RED BLOOD CELL COUNT 3.32 mill/uL (4.2-5.4); RED CELL DISTRIBUTION WIDTH 15.6 % (11.6-14.6)
[2021-07-13 15:43] LABS: CHLORIDE 100 mEq/L (98-107)
[2021-07-13] MEDS ORDERED: INSULIN REGULAR (HUMULIN R) 300UNITS/3ML VIAL IV ONE (17:45)
[2021-07-13] MEDS ORDERED: SODIUM POLYSTYRENE SULFONATE 15 G/60 ML BOT PO ONE (17:45)
[2021-07-13] MEDS ORDERED: DEXTROSE 50% WATER 50ML SYRINGE IV ONE ×2 (17:45→23:15)
[2021-07-13] MEDS ORDERED: CALCIUM GLUCONATE 100MG/ML 10ML VIAL IV ONE (17:45)
[2021-07-13] MEDS ORDERED: HYDRALAZINE 20MG/ML VIAL IV ONE (17:45)
[2021-07-13] MEDS ORDERED: FUROSEMIDE 100MG/10ML VIAL IVP NR (19:30)
[2021-07-13 19:39] LABS: CLARITY URINE CLEAR (CLEAR); COLOR URINE YELLOW (YELLOW); KETONES URINE NEGATIVE (NEGATIVE); LEUKOCYTE ESTERASE URINE NEGATIVE (NEGATIVE); NITRITE URINE NEGATIVE (NEGATIVE); OCCULT BLOOD URINE TRACE (NEGATIVE); PH URINE 7.5 (4.5-8.0); PROTEIN URINE 4+ (NEGATIVE); SPECIFIC GRAVITY URINE 1.019 (1.005-1.030); UROBILINOGEN URINE 0.2 E.U./dL (0.2-1.0)
[2021-07-14] VITALS (7 sets, daily range): BP systolic 142–181; BP diastolic 52–71
[2021-07-14] MEDS ORDERED: CLONIDINE 0.2MG TABLET PO NR (00:30)
[2021-07-14 02:22] LABS: HEPATITIS B SURFACE ANTIGEN NEGATIVE
[2021-07-14] MEDS ORDERED: DEXTROSE 50% WATER 50ML SYRINGE IV PRN ×3 (03:45→23:15)
[2021-07-14] MEDS: BLOOD SUGAR DIAGNOSTIC STRIP TEST SCH ×4 (06:13→21:09)
[2021-07-14] MEDS ORDERED: SEVELAMER CARBONATE 800 MG TABLET PO SCH (07:50)
[2021-07-14] MEDS: FOLIC ACID/VITAMIN B COMP W-C TABLET PO SCH (08:57)
[2021-07-14] MEDS: NIFEDIPINE XL 60MG TAB PO SCH (08:58)
[2021-07-14] MEDS: INSULIN LISPRO 100 UNITS/ML SUBCUT SCH ×4 (08:59→21:32)
[2021-07-14] MEDS: INSULIN GLARGINE UD 100 UNITS/ML SYR SUBCUT SCH ×2 (10:18→21:33)
[2021-07-14 10:48] LABS: BASOPHILS % 1.3 % (0.0-2.0); EOSINOPHILS % 3.8 % (0.0-5.0); HEMATOCRIT. 27.4 % (36.0-48.0); HEMOGLOBIN. 9.3 g/dL (12.0-16.0); MEAN CORPUSCULAR HEMOGLOBIN 31.2 pg (28.0-32.0); MEAN CORPUSCULAR VOLUME 91.2 fL (81.0-99.0); MEAN PLATELET VOLUME 8.4 fl (7.4-10.4); NEUTROPHILS % 62.9 % (40.0-76.0); PLATELET 148 x1000/uL (130-400); RED CELL DISTRIBUTION WIDTH 15.2 % (11.6-14.6)
[2021-07-14 11:42] LABS: PHOSPHORUS 5.4 mg/dL (2.5-4.9)
[2021-07-14] MEDS ORDERED: CLONIDINE 0.1MG TABLET PO PRN (18:00)
[2021-07-14] MEDS: ATORVASTATIN CALCIUM 40MG TABLET PO SCH (21:32)
[2021-07-14] MEDS ORDERED: HYDROCODONE/ACETAMINOPHEN 5/325MG TABLET PO PRN (23:15)
[2021-07-14] MEDS ORDERED: DOCUSATE SODIUM 100MG CAPSULE PO PRN (23:15)
[2021-07-14] MEDS ORDERED: ONDANSETRON HCL 4MG/2ML INJ IV PRN (23:15)
[2021-07-14] MEDS ORDERED: ACETAMINOPHEN 325MG TABLET PO PRN (23:15)
[2021-07-14] MEDS ORDERED: MAGNESIUM/ALUMINUM HYDROXIDE/SIMETHICONE 30ML UDC PO PRN (23:15)
[2021-07-14] MEDS ORDERED: IPRATROPIUM/ALBUTEROL 0.5-3(2.5)MG/3ML NEB HHN PRN (23:15)
[2021-07-14] MEDS ORDERED: NALOXONE HCL 0.4MG/ML VIAL IV PRN (23:30)
[2021-07-15] VITALS (7 sets, daily range): BP systolic 118–215; BP diastolic 50–76
[2021-07-15] MEDS: BLOOD SUGAR DIAGNOSTIC STRIP TEST SCH ×4 (06:41→21:00)
[2021-07-15] MEDS: OMEPRAZOLE 20MG CAPSULE EXTENDED RELEASE PO SCH (06:51)
[2021-07-15 06:54] LABS: BASOPHILS % 1.1 % (0.0-2.0); EOSINOPHILS % 4.4 % (0.0-5.0); HEMATOCRIT. 27.3 % (36.0-48.0); HEMOGLOBIN. 9.2 g/dL (12.0-16.0); LYMPHOCYTES % 18.7 % (20.0-50.0); MEAN PLATELET VOLUME 8.6 fl (7.4-10.4); MONOCYTES % 12.3 % (2.0-8.0); NEUTROPHILS % 63.5 % (40.0-76.0); PLATELET 134 x1000/uL (130-400); RED BLOOD CELL COUNT 2.96 mill/uL (4.2-5.4); RED CELL DISTRIBUTION WIDTH 14.8 % (11.6-14.6)
[2021-07-15 07:17] LABS: PHOSPHORUS 6.5 mg/dL (2.5-4.9)
[2021-07-15] MEDS: INSULIN LISPRO 100 UNITS/ML SUBCUT SCH ×4 (07:46→21:00)
[2021-07-15] MEDS: NIFEDIPINE XL 60MG TAB PO SCH (08:03)
[2021-07-15] MEDS: SEVELAMER CARBONATE 800 MG TABLET PO SCH ×3 (08:03→17:50)
[2021-07-15] MEDS: CLONIDINE 0.1MG TABLET PO PRN ×2 (08:05→15:37)
[2021-07-15] MEDS: FOLIC ACID/VITAMIN B COMP W-C TABLET PO SCH (08:05)
[2021-07-15] MEDS ORDERED: AMLODIPINE 5MG TABLET PO SCH (09:00)
[2021-07-15] MEDS: INSULIN GLARGINE UD 100 UNITS/ML SYR SUBCUT SCH ×2 (10:00→22:00)
[2021-07-15] MEDS ORDERED: SODIUM POLYSTYRENE SULFONATE 15 G/60 ML BOT PO SCH (12:00)
[2021-07-15] MEDS: DORZOLAMIDE 2% OPHTH 10 ML BOTTLE LEFTEYE SCH ×2 (13:03→22:07)
[2021-07-15] MEDS: HYDRALAZINE HCL 50MG TABLET PO SCH (18:12)
[2021-07-15] MEDS ORDERED: INSULIN GLARGINE UD 100 UNITS/ML SYR SUBCUT SCH (22:00)
[2021-07-15] MEDS: ATORVASTATIN CALCIUM 40MG TABLET PO SCH (22:06)
[2021-07-15] MEDS: TIMOLOL MALEATE 0.5% OPHTH DROPS 5ML LEFTEYE SCH (22:07)
[2021-07-15] MEDS: LABETALOL HCL 100MG TABLET PO SCH (22:07)
[2021-07-15] MEDS: LATANOPROST 0.005% OPHTH DROPS 2.5ML LEFTEYE SCH (22:07)
[2021-07-15] MEDS: EPOETIN ALFA-EPBX 4,000 UNIT/ML VIAL SUBCUT SCH (22:08)
[2021-07-15] MEDS ORDERED: DIPHENHYDRAMINE 50MG CAPSULE PO PRN (23:15)
[2021-07-15] MEDS: LORAZEPAM 1MG TABLET PO PRN (23:38)
[2021-07-16 00:04] VITALS: BP 151/78
[2021-07-16 04:00] VITALS: BP 204/72
[2021-07-16] MEDS: LEVOTHYROXINE SODIUM 125MCG TABLET PO SCH (06:24)
[2021-07-16] MEDS: OMEPRAZOLE 20MG CAPSULE EXTENDED RELEASE PO SCH (06:24)
[2021-07-16] MEDS: DORZOLAMIDE 2% OPHTH 10 ML BOTTLE LEFTEYE SCH ×3 (06:24→21:00)
[2021-07-16] MEDS: BLOOD SUGAR DIAGNOSTIC STRIP TEST SCH ×4 (06:28→20:55)
[2021-07-16] MEDS: INSULIN LISPRO 100 UNITS/ML SUBCUT SCH ×4 (07:49→20:56)
[2021-07-16 07:52] LABS: BASOPHILS % 1.5 % (0.0-2.0); EOSINOPHILS % 6.4 % (0.0-5.0); HEMATOCRIT. 26.1 % (36.0-48.0); HEMOGLOBIN. 8.7 g/dL (12.0-16.0); LYMPHOCYTES % 25.5 % (20.0-50.0); MEAN CORPUSCULAR HEMOGLOBIN 30.6 pg (28.0-32.0); MEAN CORPUSCULAR VOLUME 91.4 fL (81.0-99.0); MEAN PLATELET VOLUME 8.4 fl (7.4-10.4); MONOCYTES % 14.1 % (2.0-8.0); NEUTROPHILS % 52.5 % (40.0-76.0); PLATELET 121 x1000/uL (130-400); RED BLOOD CELL COUNT 2.86 mill/uL (4.2-5.4); RED CELL DISTRIBUTION WIDTH 14.6 % (11.6-14.6)
[2021-07-16 08:00] VITALS: BP 193/71
[2021-07-16 08:19] LABS: PHOSPHORUS 7.7 mg/dL (2.5-4.9)
[2021-07-16] MEDS ORDERED: FUROSEMIDE 100MG/10ML VIAL IVP NR (09:15)
[2021-07-16] MEDS: SEVELAMER CARBONATE 800 MG TABLET PO SCH ×3 (09:18→18:05)
[2021-07-16] MEDS: NIFEDIPINE XL 60MG TAB PO SCH (09:19)
[2021-07-16] MEDS: CLONIDINE 0.1MG TABLET PO PRN (09:19)
[2021-07-16] MEDS: FOLIC ACID/VITAMIN B COMP W-C TABLET PO SCH (09:19)
[2021-07-16] MEDS: LABETALOL HCL 100MG TABLET PO SCH ×2 (09:20→20:55)
[2021-07-16] MEDS: HYDRALAZINE HCL 50MG TABLET PO SCH ×2 (09:20→20:55)
[2021-07-16] MEDS: TIMOLOL MALEATE 0.5% OPHTH DROPS 5ML LEFTEYE SCH ×2 (09:24→20:53)
[2021-07-16] MEDS: INSULIN GLARGINE UD 100 UNITS/ML SYR SUBCUT SCH ×2 (10:00→20:56)
[2021-07-16 12:00] VITALS: BP 150/55
[2021-07-16 16:00] VITALS: BP 126/52
[2021-07-16 20:00] VITALS: BP 163/61
[2021-07-16] MEDS: ATORVASTATIN CALCIUM 40MG TABLET PO SCH (20:53)
[2021-07-16] MEDS: LATANOPROST 0.005% OPHTH DROPS 2.5ML LEFTEYE SCH (20:53)
[2021-07-17] VITALS (8 sets, daily range): BP systolic 150–192; BP diastolic 49–72
[2021-07-17] MEDS: CLONIDINE 0.1MG TABLET PO PRN ×2 (01:00→16:54)
[2021-07-17] MEDS: LEVOTHYROXINE SODIUM 125MCG TABLET PO SCH (05:48)
[2021-07-17] MEDS: LORAZEPAM 1MG TABLET PO PRN (05:48)
[2021-07-17] MEDS: OMEPRAZOLE 20MG CAPSULE EXTENDED RELEASE PO SCH (05:48)
[2021-07-17] MEDS: DORZOLAMIDE 2% OPHTH 10 ML BOTTLE LEFTEYE SCH ×3 (05:51→21:03)
[2021-07-17] MEDS: BLOOD SUGAR DIAGNOSTIC STRIP TEST SCH ×5 (07:21→21:01)
[2021-07-17 08:54] LABS: EOSINOPHILS % 4.2 % (0.0-5.0); HEMATOCRIT. 25.8 % (36.0-48.0); HEMOGLOBIN. 8.8 g/dL (12.0-16.0); LYMPHOCYTES % 12.9 % (20.0-50.0); MEAN CORPUSCULAR VOLUME 91.3 fL (81.0-99.0); MEAN PLATELET VOLUME 8.6 fl (7.4-10.4); MONOCYTES % 11.6 % (2.0-8.0); NEUTROPHILS % 70.3 % (40.0-76.0); PLATELET 126 x1000/uL (130-400); RED BLOOD CELL COUNT 2.83 mill/uL (4.2-5.4); RED CELL DISTRIBUTION WIDTH 14.7 % (11.6-14.6)
[2021-07-17] MEDS: SEVELAMER CARBONATE 800 MG TABLET PO SCH ×3 (09:00→17:50)
[2021-07-17] MEDS: HYDRALAZINE HCL 50MG TABLET PO SCH ×2 (09:01→21:02)
[2021-07-17] MEDS: FOLIC ACID/VITAMIN B COMP W-C TABLET PO SCH (09:01)
[2021-07-17] MEDS: NIFEDIPINE XL 60MG TAB PO SCH (09:01)
[2021-07-17] MEDS: LABETALOL HCL 100MG TABLET PO SCH ×2 (09:02→21:02)
[2021-07-17] MEDS: INSULIN LISPRO 100 UNITS/ML SUBCUT SCH ×4 (09:17→21:00)
[2021-07-17] MEDS: TIMOLOL MALEATE 0.5% OPHTH DROPS 5ML LEFTEYE SCH ×2 (09:19→21:03)
[2021-07-17] MEDS: INSULIN GLARGINE UD 100 UNITS/ML SYR SUBCUT SCH (10:00)
[2021-07-17] MEDS ORDERED: HYDR-4135 PO (14:17)
[2021-07-17] MEDS ORDERED: NEPVIT PO (14:17)
[2021-07-17] MEDS ORDERED: NIFEDIPINE XL 60MG TAB PO SCH (21:00)
[2021-07-17] MEDS: EPOETIN ALFA-EPBX 4,000 UNIT/ML VIAL SUBCUT SCH ×2 (21:00→21:02)
[2021-07-17] MEDS: ATORVASTATIN CALCIUM 40MG TABLET PO SCH (21:02)
[2021-07-17] MEDS: LATANOPROST 0.005% OPHTH DROPS 2.5ML LEFTEYE SCH (21:03)
== END 2021-07-17 21:25 | disposition home or self-care (01) | DRG 133 ==
LOC: ER 13:44 → 6WST 18:51 → ENRESERV 23:38
PROVIDERS: ADMIT Internal Medicine; ATTEND Internal Medicine
PROC: 5A1D70Z Performance of Urinary Filtration, Intermittent, Less than 6 Hours Per Day (ICD-10-PCS; 2021-07-13)
PROC: 5A1D70Z Performance of Urinary Filtration, Intermittent, Less than 6 Hours Per Day (ICD-10-PCS; principal; 2021-07-16)
DX: J96.00 Acute respiratory failure, unspecified whether with hypoxia or hypercapnia (principal); I13.2 Hypertensive heart and chronic kidney disease with heart failure and with stage 5 chronic kidney disease, or end stage renal disease; E87.2 Acidosis; N18.6 End stage renal disease; D63.8 Anemia in other chronic diseases classified elsewhere; N25.81 Secondary hyperparathyroidism of renal origin; I50.9 Heart failure, unspecified; Z99.2 Dependence on renal dialysis; E87.5 Hyperkalemia; E78.5 Hyperlipidemia, unspecified; E03.9 Hypothyroidism, unspecified; E78.00 Pure hypercholesterolemia, unspecified; Z79.4 Long term (current) use of insulin; Z82.49 Family history of ischemic heart disease and other diseases of the circulatory system; Z83.3 Family history of diabetes mellitus; Z79.899 Other long term (current) drug therapy
CPT/HCPCS: 36415; 71045; 80048; 80051; 80053; 80061; 80076; 81003; 82962; 83036; 83735; 83880; 84100; 84484; 85025; 86705; 86709; 86803; 87340; 93005; 93970; 99285; J0360; J0610; J0885; J1815; J1940; J2405; Q0163

== ENCOUNTER 2021-07-17 23:54 | Inpatient (IN) | payer MEDICAID, OTHER ==
[~2021-07-17] VITALS: Ht 162.6 cm; Wt 69.4 kg
[~2021-07-17 23:54] MED LIST changes: -INSU100V37 SQ; -LISI10TA26 MT; +NEPVIT PO
[2021-07-18] MEDS ORDERED: ASPIRIN 81MG TABLET PO ONE (00:15)
[2021-07-18] MEDS ORDERED: NITROGLYCERIN 0.4MG TABLET SL SL PRN (00:15)
[2021-07-18 01:09] LABS: EOSINOPHILS % 4.6 % (0.0-5.0); HEMATOCRIT. 28.7 % (36.0-48.0); HEMOGLOBIN. 9.5 g/dL (12.0-16.0); LYMPHOCYTES % 15.6 % (20.0-50.0); MEAN CORPUSCULAR HEMOGLOBIN 30.2 pg (28.0-32.0); MEAN CORPUSCULAR VOLUME 90.9 fL (81.0-99.0); MEAN PLATELET VOLUME 8.6 fl (7.4-10.4); MONOCYTES % 11.5 % (2.0-8.0); NEUTROPHILS % 67.3 % (40.0-76.0); PLATELET 145 x1000/uL (130-400); RED BLOOD CELL COUNT 3.16 mill/uL (4.2-5.4); RED CELL DISTRIBUTION WIDTH 14.6 % (11.6-14.6)
[2021-07-18 01:13] LABS: CHLORIDE 97 mEq/L (98-107)
[2021-07-18] MEDS ORDERED: MAGNESIUM/ALUMINUM HYDROXIDE/SIMETHICONE 30ML UDC PO PRN (06:30)
[2021-07-18] MEDS: BLOOD SUGAR DIAGNOSTIC STRIP TEST SCH ×4 (06:30→21:07)
[2021-07-18] MEDS ORDERED: DOCUSATE SODIUM 100MG CAPSULE PO PRN (06:30)
[2021-07-18] MEDS ORDERED: HYDROCODONE/ACETAMINOPHEN 5/325MG TABLET PO PRN (06:30)
[2021-07-18] MEDS ORDERED: ENOXAPARIN 40MG/0.4ML SYR SUBCUT SCH (06:30)
[2021-07-18] MEDS ORDERED: NALOXONE HCL 0.4MG/ML VIAL IV PRN (06:45)
[2021-07-18 07:31] LABS: HEPATITIS B SURFACE ANTIGEN NEGATIVE
[2021-07-18 10:50] VITALS: BP 176/70
[2021-07-18 12:00] VITALS: BP 194/83
[2021-07-18] MEDS: INSULIN LISPRO 100 UNITS/ML SUBCUT SCH ×2 (12:10→17:28)
[2021-07-18 12:53] VITALS: BP 176/70
[2021-07-18] MEDS ORDERED: PNEUMOCOCCAL 23-VAL P-SAC VAC 0.5 ML IM ONE (14:00)
[2021-07-18] MEDS: SEVELAMER CARBONATE 800 MG TABLET PO SCH ×3 (14:15→17:48)
[2021-07-18] MEDS: ENOXAPARIN 30MG/0.3ML SYR SUBCUT SCH (14:15)
[2021-07-18] MEDS: FOLIC ACID/VITAMIN B COMP W-C TABLET PO SCH (14:16)
[2021-07-18] MEDS: FERROUS SULFATE 325MG TABLET PO SCH ×2 (14:16→17:26)
[2021-07-18] MEDS: LEVOTHYROXINE SODIUM 125MCG TABLET PO SCH (14:16)
[2021-07-18] MEDS: OMEPRAZOLE 20MG CAPSULE EXTENDED RELEASE PO SCH (14:17)
[2021-07-18] MEDS: INSULIN GLARGINE UD 100 UNITS/ML SYR SUBCUT SCH ×2 (14:19→22:09)
[2021-07-18] MEDS: LABETALOL HCL 100MG TABLET PO SCH ×2 (14:26→20:26)
[2021-07-18] MEDS: HYDRALAZINE HCL 50MG TABLET PO SCH ×2 (14:26→20:25)
[2021-07-18] MEDS: TIMOLOL MALEATE 0.5% OPHTH DROPS 5ML LEFTEYE SCH ×2 (14:27→20:26)
[2021-07-18] MEDS: DORZOLAMIDE 2% OPHTH 10 ML BOTTLE LEFTEYE SCH ×2 (14:27→21:08)
[2021-07-18 16:00] VITALS: BP 157/91
[2021-07-18 20:00] VITALS: BP 182/63
[2021-07-18] MEDS: ATORVASTATIN CALCIUM 40MG TABLET PO SCH (20:25)
[2021-07-18] MEDS: FAMOTIDINE 20MG TABLET PO SCH (20:26)
[2021-07-18] MEDS: LATANOPROST 0.005% OPHTH DROPS 2.5ML LEFTEYE SCH (20:27)
[2021-07-18] MEDS: EPOETIN ALFA-EPBX 4,000 UNIT/ML VIAL SUBCUT SCH (20:27)
[2021-07-18] MEDS: ONDANSETRON HCL 4MG/2ML INJ IV PRN (21:08)
[2021-07-18] MEDS: ZOLPIDEM TARTRATE 5MG TABLET PO PRN (22:35)
[2021-07-19] VITALS: BP 133/76
[2021-07-19] MEDS: CLONIDINE 0.1MG TABLET PO PRN ×2 (03:09→17:54)
[2021-07-19 03:32] VITALS: BP 214/93
[2021-07-19] MEDS: LEVOTHYROXINE SODIUM 125MCG TABLET PO SCH (06:10)
[2021-07-19] MEDS: BLOOD SUGAR DIAGNOSTIC STRIP TEST SCH ×4 (06:10→21:53)
[2021-07-19] MEDS: OMEPRAZOLE 20MG CAPSULE EXTENDED RELEASE PO SCH (06:10)
[2021-07-19] MEDS: DORZOLAMIDE 2% OPHTH 10 ML BOTTLE LEFTEYE SCH ×3 (06:11→21:59)
[2021-07-19] MEDS: DEXTROSE 50% WATER 50ML SYRINGE IV PRN ×4 (06:17→21:51)
[2021-07-19] MEDS: INSULIN LISPRO 100 UNITS/ML SUBCUT SCH ×3 (06:27→17:56)
[2021-07-19 07:43] LABS: BASOPHILS % 1.8 % (0.0-2.0); EOSINOPHILS % 4.2 % (0.0-5.0); HEMATOCRIT. 25.6 % (36.0-48.0); HEMOGLOBIN. 8.7 g/dL (12.0-16.0); LYMPHOCYTES % 18.9 % (20.0-50.0); MEAN CORPUSCULAR HEMOGLOBIN 30.9 pg (28.0-32.0); MEAN PLATELET VOLUME 8.5 fl (7.4-10.4); MONOCYTES % 12.2 % (2.0-8.0); NEUTROPHILS % 62.9 % (40.0-76.0); PLATELET 141 x1000/uL (130-400); RED BLOOD CELL COUNT 2.81 mill/uL (4.2-5.4); RED CELL DISTRIBUTION WIDTH 14.2 % (11.6-14.6)
[2021-07-19] MEDS: ONDANSETRON HCL 4MG/2ML INJ IV PRN (07:53)
[2021-07-19 08:00] VITALS: BP 148/70
[2021-07-19] MEDS: HYDRALAZINE HCL 50MG TABLET PO SCH (08:05)
[2021-07-19] MEDS: LABETALOL HCL 100MG TABLET PO SCH ×2 (08:06→21:51)
[2021-07-19 08:24] LABS: PHOSPHORUS 4.7 mg/dL (2.5-4.9)
[2021-07-19 08:25] LABS: T4 FREE 0.98 ng/dL (0.76-1.46)
[2021-07-19] MEDS: TIMOLOL MALEATE 0.5% OPHTH DROPS 5ML LEFTEYE SCH ×2 (08:30→21:59)
[2021-07-19] MEDS: FERROUS SULFATE 325MG TABLET PO SCH ×3 (08:31→17:55)
[2021-07-19] MEDS: SEVELAMER CARBONATE 800 MG TABLET PO SCH ×3 (08:31→17:54)
[2021-07-19] MEDS: ASPIRIN 81MG EC TABLET PO SCH (08:31)
[2021-07-19] MEDS: ENOXAPARIN 30MG/0.3ML SYR SUBCUT SCH ×2 (08:32→08:41)
[2021-07-19] MEDS: FOLIC ACID/VITAMIN B COMP W-C TABLET PO SCH (08:33)
[2021-07-19] MEDS: INSULIN GLARGINE UD 100 UNITS/ML SYR SUBCUT SCH (10:00)
[2021-07-19] MEDS: NIFEDIPINE XL 60MG TAB PO SCH ×3 (10:19→21:52)
[2021-07-19] MEDS ORDERED: SODIUM POLYSTYRENE SULFONATE 15 G/60 ML BOT PO NR (11:30)
[2021-07-19 12:00] VITALS: BP 130/70
[2021-07-19] MEDS: HYDRALAZINE HCL 100MG TABLET PO SCH ×2 (13:51→21:52)
[2021-07-19 16:00] VITALS: BP 183/97
[2021-07-19 20:00] VITALS: BP 202/87
[2021-07-19] MEDS: FAMOTIDINE 20MG TABLET PO SCH (21:52)
[2021-07-19] MEDS: ATORVASTATIN CALCIUM 40MG TABLET PO SCH (21:52)
[2021-07-19] MEDS: LATANOPROST 0.005% OPHTH DROPS 2.5ML LEFTEYE SCH (21:59)
[2021-07-20] VITALS: BP 156/86
[2021-07-20] MEDS: IPRATROPIUM/ALBUTEROL 0.5-3(2.5)MG/3ML NEB HHN PRN (02:41)
[2021-07-20 04:00] VITALS: BP 150/73
[2021-07-20] MEDS: HYDRALAZINE HCL 100MG TABLET PO SCH ×3 (06:18→21:41)
[2021-07-20] MEDS: LEVOTHYROXINE SODIUM 125MCG TABLET PO SCH (06:18)
[2021-07-20] MEDS: OMEPRAZOLE 20MG CAPSULE EXTENDED RELEASE PO SCH (06:18)
[2021-07-20] MEDS: DORZOLAMIDE 2% OPHTH 10 ML BOTTLE LEFTEYE SCH ×2 (06:18→21:43)
[2021-07-20] MEDS: BLOOD SUGAR DIAGNOSTIC STRIP TEST SCH ×4 (06:19→21:41)
[2021-07-20] MEDS: INSULIN LISPRO 100 UNITS/ML SUBCUT SCH ×3 (06:20→18:46)
[2021-07-20 08:00] VITALS: BP 122/79
[2021-07-20] MEDS: LABETALOL HCL 100MG TABLET PO SCH ×2 (09:00→21:41)
[2021-07-20] MEDS: ENOXAPARIN 30MG/0.3ML SYR SUBCUT SCH ×2 (09:00→09:54)
[2021-07-20] MEDS: TIMOLOL MALEATE 0.5% OPHTH DROPS 5ML LEFTEYE SCH ×2 (09:00→21:43)
[2021-07-20] MEDS: NIFEDIPINE XL 60MG TAB PO SCH ×2 (09:00→21:41)
[2021-07-20] MEDS: FOLIC ACID/VITAMIN B COMP W-C TABLET PO SCH (09:42)
[2021-07-20] MEDS: FERROUS SULFATE 325MG TABLET PO SCH ×3 (09:43→18:52)
[2021-07-20] MEDS: SEVELAMER CARBONATE 800 MG TABLET PO SCH ×3 (09:43→18:52)
[2021-07-20] MEDS: ASPIRIN 81MG EC TABLET PO SCH (09:43)
[2021-07-20 12:00] VITALS: BP 116/74
[2021-07-20] MEDS: CLONIDINE 0.1MG TABLET PO PRN (18:52)
[2021-07-20] MEDS ORDERED: NIFEDIPINE XL 60MG TAB PO SCH (19:45)
[2021-07-20 20:00] VITALS: BP 185/64
[2021-07-20] MEDS ORDERED: INSULIN LISPRO 100 UNITS/ML SUBCUT SCH (21:30)
[2021-07-20] MEDS: ACETAMINOPHEN 325MG TABLET PO PRN (21:40)
[2021-07-20] MEDS: FAMOTIDINE 20MG TABLET PO SCH (21:41)
[2021-07-20] MEDS: ATORVASTATIN CALCIUM 40MG TABLET PO SCH (21:41)
[2021-07-20] MEDS: LATANOPROST 0.005% OPHTH DROPS 2.5ML LEFTEYE SCH (21:43)
[2021-07-20] MEDS: ZOLPIDEM TARTRATE 5MG TABLET PO PRN (21:57)
[2021-07-21] VITALS: BP 131/47
[2021-07-21 04:00] VITALS: BP 158/64
[2021-07-21] MEDS: HYDRALAZINE HCL 100MG TABLET PO SCH ×3 (06:19→21:23)
[2021-07-21] MEDS: OMEPRAZOLE 20MG CAPSULE EXTENDED RELEASE PO SCH (06:19)
[2021-07-21] MEDS: LEVOTHYROXINE SODIUM 125MCG TABLET PO SCH (06:19)
[2021-07-21] MEDS: DORZOLAMIDE 2% OPHTH 10 ML BOTTLE LEFTEYE SCH ×3 (06:21→21:27)
[2021-07-21] MEDS: INSULIN LISPRO 100 UNITS/ML SUBCUT SCH ×3 (06:38→17:10)
[2021-07-21] MEDS: BLOOD SUGAR DIAGNOSTIC STRIP TEST SCH ×4 (06:38→21:26)
[2021-07-21 08:00] VITALS: BP 173/50
[2021-07-21] MEDS: ENOXAPARIN 30MG/0.3ML SYR SUBCUT SCH ×2 (09:00→09:12)
[2021-07-21] MEDS: FERROUS SULFATE 325MG TABLET PO SCH ×3 (09:11→18:22)
[2021-07-21] MEDS: SEVELAMER CARBONATE 800 MG TABLET PO SCH ×3 (09:11→18:22)
[2021-07-21] MEDS: ASPIRIN 81MG EC TABLET PO SCH (09:11)
[2021-07-21] MEDS: LABETALOL HCL 100MG TABLET PO SCH (09:12)
[2021-07-21] MEDS: FOLIC ACID/VITAMIN B COMP W-C TABLET PO SCH (09:12)
[2021-07-21] MEDS: NIFEDIPINE XL 60MG TAB PO SCH ×2 (09:13→21:23)
[2021-07-21] MEDS: TIMOLOL MALEATE 0.5% OPHTH DROPS 5ML LEFTEYE SCH ×2 (09:20→21:29)
[2021-07-21 12:00] VITALS: BP 117/54
[2021-07-21 16:00] VITALS: BP 158/59
[2021-07-21] MEDS ORDERED: LACTULOSE 20G/30ML UDC PO NR (17:30)
[2021-07-21 20:00] VITALS: BP 174/62
[2021-07-21] MEDS: FAMOTIDINE 20MG TABLET PO SCH (21:22)
[2021-07-21] MEDS: ATORVASTATIN CALCIUM 40MG TABLET PO SCH (21:23)
[2021-07-21] MEDS: LATANOPROST 0.005% OPHTH DROPS 2.5ML LEFTEYE SCH (21:27)
[2021-07-21] MEDS: ZOLPIDEM TARTRATE 5MG TABLET PO PRN (22:40)
[2021-07-21] MEDS: EPOETIN ALFA-EPBX 4,000 UNIT/ML VIAL SUBCUT SCH (22:44)
[2021-07-21] MEDS: IPRATROPIUM/ALBUTEROL 0.5-3(2.5)MG/3ML NEB HHN PRN (23:43)
[2021-07-22] VITALS: BP 156/67
[2021-07-22 04:00] VITALS: BP 148/53
[2021-07-22] MEDS: ACETAMINOPHEN 325MG TABLET PO PRN ×2 (04:02→21:39)
[2021-07-22] MEDS: HYDRALAZINE HCL 100MG TABLET PO SCH ×3 (05:38→21:25)
[2021-07-22] MEDS: DORZOLAMIDE 2% OPHTH 10 ML BOTTLE LEFTEYE SCH ×3 (05:38→21:23)
[2021-07-22] MEDS: LEVOTHYROXINE SODIUM 125MCG TABLET PO SCH (06:16)
[2021-07-22] MEDS: OMEPRAZOLE 20MG CAPSULE EXTENDED RELEASE PO SCH (06:16)
[2021-07-22] MEDS: BLOOD SUGAR DIAGNOSTIC STRIP TEST SCH ×7 (06:16→21:25)
[2021-07-22] MEDS: INSULIN LISPRO 100 UNITS/ML SUBCUT SCH ×6 (06:42→21:00)
[2021-07-22 07:17] LABS: EOSINOPHILS % 3.7 % (0.0-5.0); HEMATOCRIT. 27.5 % (36.0-48.0); HEMOGLOBIN. 9.1 g/dL (12.0-16.0); LYMPHOCYTES % 12.9 % (20.0-50.0); MEAN CORPUSCULAR HEMOGLOBIN 30.6 pg (28.0-32.0); MEAN CORPUSCULAR VOLUME 92.1 fL (81.0-99.0); MEAN PLATELET VOLUME 8.8 fl (7.4-10.4); MONOCYTES % 10.8 % (2.0-8.0); NEUTROPHILS % 71.6 % (40.0-76.0); PLATELET 169 x1000/uL (130-400); RED BLOOD CELL COUNT 2.98 mill/uL (4.2-5.4); RED CELL DISTRIBUTION WIDTH 14.6 % (11.6-14.6)
[2021-07-22 08:00] VITALS: BP 165/74
[2021-07-22] MEDS ORDERED: DEXTROSE 50% WATER 50ML SYRINGE IV PRN (09:15)
[2021-07-22] MEDS: FOLIC ACID/VITAMIN B COMP W-C TABLET PO SCH (09:34)
[2021-07-22] MEDS: SEVELAMER CARBONATE 800 MG TABLET PO SCH ×3 (09:34→17:34)
[2021-07-22] MEDS: ASPIRIN 81MG EC TABLET PO SCH (09:35)
[2021-07-22] MEDS: NIFEDIPINE XL 60MG TAB PO SCH ×2 (09:35→21:24)
[2021-07-22] MEDS: ENOXAPARIN 30MG/0.3ML SYR SUBCUT SCH (09:36)
[2021-07-22] MEDS: TIMOLOL MALEATE 0.5% OPHTH DROPS 5ML LEFTEYE SCH ×2 (09:37→21:23)
[2021-07-22] MEDS: FERROUS SULFATE 325MG TABLET PO SCH ×3 (10:37→17:34)
[2021-07-22 12:00] VITALS: BP 156/76
[2021-07-22 16:00] VITALS: BP 154/90
[2021-07-22 20:00] VITALS: BP 155/61
[2021-07-22] MEDS: LATANOPROST 0.005% OPHTH DROPS 2.5ML LEFTEYE SCH (21:23)
[2021-07-22] MEDS: ATORVASTATIN CALCIUM 40MG TABLET PO SCH (21:24)
[2021-07-22] MEDS: FAMOTIDINE 20MG TABLET PO SCH (21:24)
[2021-07-22] MEDS: ZOLPIDEM TARTRATE 5MG TABLET PO PRN (21:25)
[2021-07-23] VITALS: BP 137/54
[2021-07-23 04:00] VITALS: BP 168/71
[2021-07-23] MEDS: ACETAMINOPHEN 325MG TABLET PO PRN (05:00)
[2021-07-23] MEDS: DORZOLAMIDE 2% OPHTH 10 ML BOTTLE LEFTEYE SCH ×2 (05:00→14:18)
[2021-07-23] MEDS: HYDRALAZINE HCL 100MG TABLET PO SCH ×2 (05:00→14:19)
[2021-07-23] MEDS: BLOOD SUGAR DIAGNOSTIC STRIP TEST SCH ×4 (06:12→12:14)
[2021-07-23] MEDS: LEVOTHYROXINE SODIUM 125MCG TABLET PO SCH (06:32)
[2021-07-23] MEDS: INSULIN LISPRO 100 UNITS/ML SUBCUT SCH ×4 (06:32→12:40)
[2021-07-23] MEDS: CLONIDINE 0.1MG TABLET PO PRN (06:46)
[2021-07-23 08:00] VITALS: BP 151/57
[2021-07-23] MEDS: ENOXAPARIN 30MG/0.3ML SYR SUBCUT SCH (08:59)
[2021-07-23] MEDS: ASPIRIN 81MG EC TABLET PO SCH (09:00)
[2021-07-23] MEDS: FOLIC ACID/VITAMIN B COMP W-C TABLET PO SCH (09:00)
[2021-07-23] MEDS: NIFEDIPINE XL 60MG TAB PO SCH (09:00)
[2021-07-23] MEDS: SEVELAMER CARBONATE 800 MG TABLET PO SCH ×2 (09:01→14:19)
[2021-07-23] MEDS: TIMOLOL MALEATE 0.5% OPHTH DROPS 5ML LEFTEYE SCH (09:03)
[2021-07-23] MEDS: FERROUS SULFATE 325MG TABLET PO SCH ×2 (09:04→14:22)
[2021-07-23] MEDS: IPRATROPIUM/ALBUTEROL 0.5-3(2.5)MG/3ML NEB HHN PRN (09:55)
[2021-07-23 12:00] VITALS: BP 144/90
[2021-07-23 14:37] LABS: BG CARBOXYHEMOGLOBIN 0.1 % (0.5-1.5); BG DEOXYHEMOGLOBIN 4.9 % (0.0-5.0); BG METHEMOGLOBIN 0.3 % (0.0-1.5); BG OXYGEN SATURATION 95.1 % (92.0-98.5); BG OXYHEMOGLOBIN 94.7 % (94.0-97.0); BG PCO2 36.6 mmHg (35.0-45.0); BG PH 7.435 (7.350-7.450); BG SAMPLE SITE LEFT RADIAL; BG TOTAL HEMOGLOBIN 9.8 g/dL (12.0-18.0); BG VENT MODE ROOM AIR
[2021-07-23 14:40] VITALS: BP 144/90
[2021-07-23] MEDS ORDERED: ONDANSETRON HCL 4MG/2ML INJ IV PRN (16:15)
== END 2021-07-23 16:50 | disposition home or self-care (01) | DRG 203 ==
LOC: ER 23:54 → MICUSO 07-18 04:30 → 8WST 07-18 07:25
PROVIDERS: ADMIT Internal Medicine; ATTEND Internal Medicine
PROC: 5A1D70Z Performance of Urinary Filtration, Intermittent, Less than 6 Hours Per Day (ICD-10-PCS; principal; 2021-07-18)
PROC: 5A1D70Z Performance of Urinary Filtration, Intermittent, Less than 6 Hours Per Day (ICD-10-PCS; 2021-07-20)
PROC: 5A1D70Z Performance of Urinary Filtration, Intermittent, Less than 6 Hours Per Day (ICD-10-PCS; 2021-07-22)
DX: M94.0 Chondrocostal junction syndrome [Tietze] (principal); I13.2 Hypertensive heart and chronic kidney disease with heart failure and with stage 5 chronic kidney disease, or end stage renal disease; E11.649 Type 2 diabetes mellitus with hypoglycemia without coma; N18.6 End stage renal disease; D63.8 Anemia in other chronic diseases classified elsewhere; I50.9 Heart failure, unspecified; N25.81 Secondary hyperparathyroidism of renal origin; E11.22 Type 2 diabetes mellitus with diabetic chronic kidney disease; E03.9 Hypothyroidism, unspecified; M54.9 Dorsalgia, unspecified; Z20.822 Contact with and (suspected) exposure to COVID-19; E78.5 Hyperlipidemia, unspecified; E87.5 Hyperkalemia; H40.9 Unspecified glaucoma; Z79.4 Long term (current) use of insulin; Z82.49 Family history of ischemic heart disease and other diseases of the circulatory system; Z83.3 Family history of diabetes mellitus; Z99.2 Dependence on renal dialysis; Z79.82 Long term (current) use of aspirin; Z79.899 Other long term (current) drug therapy
CPT/HCPCS: 36415; 36600; 71045; 80048; 80053; 80061; 80076; 82375; 82805; 82962; 83036; 83735; 83880; 84100; 84439; 84443; 84484; 85025; 86705; 86709; 86803; 87340; 87426; 93005; 93970; 94640; 97162; 97166; 99285; J0885; J1650; J1815; J2405

== ENCOUNTER 2022-03-02 10:05 | Emergency (ER) | payer MEDICAID, OTHER ==
[~2022-03-02] VITALS: Ht 160 cm; Wt 53.0 kg
[~2022-03-02 10:05] MED LIST changes: -AMLO5TAB88 MT; -BENA40TA9 MT; -INSU100I28 SQ
[2022-03-02 10:32] LABS: BASOPHILS % 1.4 % (0.0-2.0); EOSINOPHILS % 2.4 % (0.0-5.0); HEMATOCRIT. 32.1 % (36.0-48.0); HEMOGLOBIN. 10.8 g/dL (12.0-16.0); LYMPHOCYTES % 12.2 % (20.0-50.0); MEAN CORPUSCULAR HEMOGLOBIN 29.1 pg (28.0-32.0); MEAN CORPUSCULAR VOLUME 86.4 fL (81.0-99.0); MEAN PLATELET VOLUME 7.2 fl (7.4-10.4); MONOCYTES % 10.4 % (2.0-8.0); NEUTROPHILS % 73.6 % (40.0-76.0); PLATELET 218 x1000/uL (130-400); RED BLOOD CELL COUNT 3.72 mill/uL (4.2-5.4); RED CELL DISTRIBUTION WIDTH 15.5 % (11.6-14.6)
[2022-03-02 10:42] LABS: CHLORIDE 94 mEq/L (98-107)
[2022-03-02] MEDS ORDERED: ACETAMINOPHEN 325MG TABLET PO ONE (11:45)
[2022-03-02] MEDS ORDERED: METOCLOPRAMIDE HCL 10MG/2ML VIAL IV ONE (11:45)
[2022-03-02] MEDS ORDERED: LIDO700A15 TP (13:37)
[2022-03-02] MEDS ORDERED: ACET-2708 MT (13:37)
[2022-03-02] MEDS ORDERED: METO5TAB86 MT (13:37)
[2022-03-02 16:00] VITALS: BP 183/70
== END 2022-03-02 18:01 | disposition home or self-care (01) ==
LOC: ER 10:12
DX: R51.9 Headache, unspecified (principal); E11.22 Type 2 diabetes mellitus with diabetic chronic kidney disease; I12.0 Hypertensive chronic kidney disease with stage 5 chronic kidney disease or end stage renal disease; N18.6 End stage renal disease; Z79.899 Other long term (current) drug therapy; Z13.9 Encounter for screening, unspecified; Z20.822 Contact with and (suspected) exposure to COVID-19
CPT/HCPCS: 36415; 70450; 71045; 80053; 83880; 84484; 85025; 87426; 93005; 96374; 99285; C9803; J2765

== ENCOUNTER 2022-05-19 08:45 | Inpatient (IN) | payer OTHER ==
[~2022-05-19] VITALS: Ht 152.4 cm; Wt 61.2 kg
[~2022-05-19 08:45] MED LIST changes: +ACET-2708 MT; +LIDO700A15 TP; +METO5TAB86 MT
[2022-05-19 09:40] LABS: BASOPHILS % 1.2 % (0.0-2.0); EOSINOPHILS % 2.8 % (0.0-5.0); HEMATOCRIT. 36.5 % (36.0-48.0); HEMOGLOBIN. 11.7 g/dL (12.0-16.0); LYMPHOCYTES % 12.1 % (20.0-50.0); MEAN CORPUSCULAR HEMOGLOBIN 29.4 pg (28.0-32.0); MEAN CORPUSCULAR VOLUME 91.5 fL (81.0-99.0); MONOCYTES % 10.3 % (2.0-8.0); NEUTROPHILS % 73.6 % (40.0-76.0); PLATELET 180 x1000/uL (130-400); RED BLOOD CELL COUNT 3.98 mill/uL (4.2-5.4); RED CELL DISTRIBUTION WIDTH 15.6 % (11.6-14.6)
[2022-05-19 09:51] LABS: CHLORIDE 97 mEq/L (98-107)
[2022-05-19] MEDS ORDERED: ALBUTEROL (0.083%) 2.5MG/3ML NEB HHN STA (12:12)
[2022-05-19] MEDS: CLONIDINE 0.2MG TABLET PO PRN ×2 (15:58→22:18)
[2022-05-19] MEDS ORDERED: ACETAMINOPHEN 325MG TABLET PO NR (18:45)
[2022-05-20] VITALS: BP 193/72
[2022-05-20] MEDS ORDERED: METOCLOPRAMIDE HCL 5MG TABLET PO PRN (00:30)
[2022-05-20] MEDS ORDERED: DEXTROSE 50% WATER 50ML SYRINGE IV PRN (00:45)
[2022-05-20] MEDS: HYDRALAZINE HCL 100MG TABLET PO SCH ×4 (00:58→21:30)
[2022-05-20] MEDS: BLOOD SUGAR DIAGNOSTIC STRIP TEST SCH ×5 (00:59→21:30)
[2022-05-20] MEDS: HYDROCODONE/ACETAMINOPHEN 5/325MG TABLET PO PRN ×2 (00:59→09:09)
[2022-05-20] MEDS: INSULIN LISPRO 100 UNITS/ML SUBCUT SCH ×5 (01:04→21:00)
[2022-05-20 03:51] LABS: BASOPHILS % 1.5 % (0.0-2.0); EOSINOPHILS % 6.2 % (0.0-5.0); HEMATOCRIT. 31.5 % (36.0-48.0); HEMOGLOBIN. 10.3 g/dL (12.0-16.0); LYMPHOCYTES % 11.7 % (20.0-50.0); MEAN CORPUSCULAR HEMOGLOBIN 29.7 pg (28.0-32.0); MEAN CORPUSCULAR VOLUME 90.9 fL (81.0-99.0); MEAN PLATELET VOLUME 8.2 fl (7.4-10.4); MONOCYTES % 14.7 % (2.0-8.0); NEUTROPHILS % 65.9 % (40.0-76.0); PLATELET 164 x1000/uL (130-400); RED BLOOD CELL COUNT 3.47 mill/uL (4.2-5.4); RED CELL DISTRIBUTION WIDTH 15.3 % (11.6-14.6)
[2022-05-20 04:00] VITALS: BP 155/58
[2022-05-20] MEDS: DORZOLAMIDE 2% OPHTH 10 ML BOTTLE LEFTEYE SCH ×3 (05:26→21:29)
[2022-05-20] MEDS ORDERED: HYDRALAZINE HCL 100MG TABLET PO SCH (06:00)
[2022-05-20 08:30] VITALS: BP 148/61
[2022-05-20] MEDS: TIMOLOL MALEATE 0.5% OPHTH DROPS 5ML LEFTEYE SCH ×2 (09:07→21:29)
[2022-05-20] MEDS: SEVELAMER CARBONATE 800 MG TABLET PO SCH ×3 (09:08→17:57)
[2022-05-20] MEDS: LABETALOL HCL 200MG TABLET PO SCH ×2 (09:08→19:42)
[2022-05-20] MEDS: FERROUS SULFATE 325MG TABLET PO SCH (09:08)
[2022-05-20] MEDS: LEVOTHYROXINE SODIUM 125MCG TABLET PO SCH (09:08)
[2022-05-20] MEDS: OMEPRAZOLE 20MG CAPSULE EXTENDED RELEASE PO SCH (09:08)
[2022-05-20] MEDS: FOLIC ACID/VITAMIN B COMP W-C TABLET PO SCH (09:08)
[2022-05-20] MEDS: ATORVASTATIN CALCIUM 40MG TABLET PO SCH (09:09)
[2022-05-20] MEDS: INSULIN GLARGINE 100 UNITS/ML SUBCUT SCH ×3 (10:00→21:30)
[2022-05-20 12:27] LABS: PHOSPHORUS 5.8 mg/dL (2.5-4.9)
[2022-05-20 12:45] VITALS: BP 140/73
[2022-05-20] MEDS ORDERED: NALOXONE HCL 0.4MG/ML VIAL IV PRN (14:00)
[2022-05-20] MEDS ORDERED: SODIUM POLYSTYRENE SULFONATE 15 G/60 ML BOT PO SCH (14:00)
[2022-05-20] MEDS: ASPIRIN 81MG TABLET PO SCH (16:00)
[2022-05-20 16:25] VITALS: BP 146/86
[2022-05-20 19:13] LABS: HEPATITIS B SURFACE ANTIGEN NEGATIVE
[2022-05-20 20:00] VITALS: BP 191/84
[2022-05-20] MEDS: LATANOPROST 0.005% OPHTH DROPS 2.5ML LEFTEYE SCH (21:29)
[2022-05-21] VITALS: BP 177/57
[2022-05-21] MEDS: CLONIDINE 0.2MG TABLET PO PRN ×2 (00:12→08:08)
[2022-05-21 04:00] VITALS: BP 159/59
[2022-05-21] MEDS: HYDRALAZINE HCL 100MG TABLET PO SCH ×3 (05:14→21:29)
[2022-05-21] MEDS: DORZOLAMIDE 2% OPHTH 10 ML BOTTLE LEFTEYE SCH ×3 (05:14→21:28)
[2022-05-21 06:52] LABS: PHOSPHORUS 4.3 mg/dL (2.5-4.9)
[2022-05-21 06:56] LABS: EOSINOPHILS % 4.5 % (0.0-5.0); HEMATOCRIT. 33.7 % (36.0-48.0); HEMOGLOBIN. 11.1 g/dL (12.0-16.0); LYMPHOCYTES % 10.2 % (20.0-50.0); MEAN CORPUSCULAR VOLUME 90.9 fL (81.0-99.0); MEAN PLATELET VOLUME 8.2 fl (7.4-10.4); NEUTROPHILS % 71.3 % (40.0-76.0); PLATELET 187 x1000/uL (130-400); RED CELL DISTRIBUTION WIDTH 15.3 % (11.6-14.6)
[2022-05-21] MEDS: INSULIN LISPRO 100 UNITS/ML SUBCUT SCH ×4 (07:25→21:00)
[2022-05-21] MEDS: FOLIC ACID/VITAMIN B COMP W-C TABLET PO SCH (08:07)
[2022-05-21] MEDS: LEVOTHYROXINE SODIUM 125MCG TABLET PO SCH (08:07)
[2022-05-21] MEDS: FERROUS SULFATE 325MG TABLET PO SCH (08:07)
[2022-05-21] MEDS: SEVELAMER CARBONATE 800 MG TABLET PO SCH ×3 (08:07→17:12)
[2022-05-21] MEDS: TIMOLOL MALEATE 0.5% OPHTH DROPS 5ML LEFTEYE SCH ×2 (08:07→21:28)
[2022-05-21] MEDS: HYDROCODONE/ACETAMINOPHEN 5/325MG TABLET PO PRN (08:07)
[2022-05-21] MEDS: ASPIRIN 81MG TABLET PO SCH (08:08)
[2022-05-21] MEDS: LABETALOL HCL 200MG TABLET PO SCH ×2 (08:08→21:33)
[2022-05-21] MEDS: ATORVASTATIN CALCIUM 40MG TABLET PO SCH (08:08)
[2022-05-21] MEDS: OMEPRAZOLE 20MG CAPSULE EXTENDED RELEASE PO SCH (08:08)
[2022-05-21 08:35] VITALS: BP 169/58
[2022-05-21] MEDS: INSULIN GLARGINE 100 UNITS/ML SUBCUT SCH ×2 (10:00→21:29)
[2022-05-21] MEDS: AMLODIPINE 10MG TABLET PO SCH (11:28)
[2022-05-21] MEDS: BLOOD SUGAR DIAGNOSTIC STRIP TEST SCH ×3 (12:50→21:36)
[2022-05-21 12:53] VITALS: BP 162/54
[2022-05-21 16:24] VITALS: BP 147/49
[2022-05-21 20:00] VITALS: BP 145/55
[2022-05-21] MEDS: PIPERACILLIN/TAZOBACTAM 3.375 G in DEXTROSE 5% WATER 50 ML IV SCH (21:28)
[2022-05-21] MEDS: LATANOPROST 0.005% OPHTH DROPS 2.5ML LEFTEYE SCH (21:28)
[2022-05-22] VITALS (7 sets, daily range): BP systolic 112–158; BP diastolic 42–59
[2022-05-22] MEDS ORDERED: ONDANSETRON HCL 4MG/2ML INJ IV PRN (04:30)
[2022-05-22] MEDS: DORZOLAMIDE 2% OPHTH 10 ML BOTTLE LEFTEYE SCH ×3 (05:31→20:50)
[2022-05-22] MEDS: HYDRALAZINE HCL 100MG TABLET PO SCH ×3 (05:31→21:17)
[2022-05-22] MEDS: BLOOD SUGAR DIAGNOSTIC STRIP TEST SCH ×4 (06:55→20:50)
[2022-05-22] MEDS: INSULIN LISPRO 100 UNITS/ML SUBCUT SCH ×4 (07:50→21:16)
[2022-05-22 08:14] LABS: HEMATOCRIT. 31.2 % (36.0-48.0); HEMOGLOBIN. 10.2 g/dL (12.0-16.0); MEAN CORPUSCULAR HEMOGLOBIN 29.8 pg (28.0-32.0); MEAN CORPUSCULAR VOLUME 90.8 fL (81.0-99.0); MEAN PLATELET VOLUME 8.2 fl (7.4-10.4); PLATELET 177 x1000/uL (130-400); RED BLOOD CELL COUNT 3.44 mill/uL (4.2-5.4); RED CELL DISTRIBUTION WIDTH 15.4 % (11.6-14.6)
[2022-05-22] MEDS: PIPERACILLIN/TAZOBACTAM 3.375 G in DEXTROSE 5% WATER 50 ML IV SCH ×2 (08:50→20:50)
[2022-05-22] MEDS: ACETAMINOPHEN 650MG/20.3ML UDC PO PRN (08:56)
[2022-05-22] MEDS: OMEPRAZOLE 20MG CAPSULE EXTENDED RELEASE PO SCH (08:56)
[2022-05-22] MEDS: ASPIRIN 81MG TABLET PO SCH (08:56)
[2022-05-22] MEDS: FERROUS SULFATE 325MG TABLET PO SCH (08:57)
[2022-05-22] MEDS: LABETALOL HCL 200MG TABLET PO SCH ×2 (08:57→20:50)
[2022-05-22] MEDS: SEVELAMER CARBONATE 800 MG TABLET PO SCH ×4 (08:57→18:14)
[2022-05-22] MEDS: TIMOLOL MALEATE 0.5% OPHTH DROPS 5ML LEFTEYE SCH ×2 (08:57→20:50)
[2022-05-22] MEDS: AMLODIPINE 10MG TABLET PO SCH (08:58)
[2022-05-22] MEDS: GUAIFENESIN 600MG ER TABLET PO SCH ×2 (08:58→20:50)
[2022-05-22] MEDS: FOLIC ACID/VITAMIN B COMP W-C TABLET PO SCH (08:58)
[2022-05-22] MEDS: ATORVASTATIN CALCIUM 40MG TABLET PO SCH (08:59)
[2022-05-22 09:01] LABS: PHOSPHORUS 5.3 mg/dL (2.5-4.9)
[2022-05-22] MEDS: INSULIN GLARGINE 100 UNITS/ML SUBCUT SCH ×2 (10:00→21:16)
[2022-05-22] MEDS: LEVOTHYROXINE SODIUM 125MCG TABLET PO SCH (10:28)
[2022-05-22 12:28] LABS: PLATELET ESTIMATE NORMAL
[2022-05-22] MEDS ORDERED: SODIUM CHLORIDE 10% FOR INH 15ML VIAL NEB INH NR (14:00)
[2022-05-22] MEDS: HYDROCODONE/ACETAMINOPHEN 5/325MG TABLET PO PRN (17:08)
[2022-05-22] MEDS: ACETYLCYSTEINE 100MG/ML 10% VIAL 4ML INH SCH ×2 (17:09→20:50)
[2022-05-22] MEDS: IPRATROPIUM/ALBUTEROL 0.5-3(2.5)MG/3ML NEB HHN SCH ×2 (17:10→19:50)
[2022-05-22] MEDS: LATANOPROST 0.005% OPHTH DROPS 2.5ML LEFTEYE SCH (20:50)
[2022-05-23] MEDS: IPRATROPIUM/ALBUTEROL 0.5-3(2.5)MG/3ML NEB HHN SCH ×7 (00:12→23:56)
[2022-05-23] MEDS: ACETYLCYSTEINE 100MG/ML 10% VIAL 4ML INH SCH ×3 (00:12→16:23)
[2022-05-23 04:00] VITALS: BP 123/50
[2022-05-23] MEDS: HYDRALAZINE HCL 100MG TABLET PO SCH ×3 (05:53→22:05)
[2022-05-23] MEDS: DORZOLAMIDE 2% OPHTH 10 ML BOTTLE LEFTEYE SCH ×3 (05:53→22:05)
[2022-05-23] MEDS: BLOOD SUGAR DIAGNOSTIC STRIP TEST SCH ×4 (06:26→20:46)
[2022-05-23] MEDS: INSULIN LISPRO 100 UNITS/ML SUBCUT SCH ×4 (07:50→20:46)
[2022-05-23 08:00] VITALS: BP 135/54
[2022-05-23] MEDS: TIMOLOL MALEATE 0.5% OPHTH DROPS 5ML LEFTEYE SCH ×2 (08:40→22:04)
[2022-05-23] MEDS: ASPIRIN 81MG TABLET PO SCH (08:40)
[2022-05-23] MEDS: PIPERACILLIN/TAZOBACTAM 3.375 G in DEXTROSE 5% WATER 50 ML IV SCH ×2 (08:40→22:04)
[2022-05-23] MEDS: AMLODIPINE 10MG TABLET PO SCH (08:41)
[2022-05-23] MEDS: FOLIC ACID/VITAMIN B COMP W-C TABLET PO SCH (08:41)
[2022-05-23] MEDS: GUAIFENESIN 600MG ER TABLET PO SCH ×2 (08:41→22:04)
[2022-05-23] MEDS: LEVOTHYROXINE SODIUM 125MCG TABLET PO SCH (08:42)
[2022-05-23] MEDS: SEVELAMER CARBONATE 800 MG TABLET PO SCH ×3 (08:42→17:12)
[2022-05-23] MEDS: LABETALOL HCL 200MG TABLET PO SCH ×2 (08:42→22:17)
[2022-05-23] MEDS: OMEPRAZOLE 20MG CAPSULE EXTENDED RELEASE PO SCH (08:42)
[2022-05-23] MEDS: FERROUS SULFATE 325MG TABLET PO SCH (08:42)
[2022-05-23] MEDS: ATORVASTATIN CALCIUM 40MG TABLET PO SCH (08:42)
[2022-05-23] MEDS: HYDROCODONE/ACETAMINOPHEN 5/325MG TABLET PO PRN (08:44)
[2022-05-23 08:50] LABS: HEMOGLOBIN. 9.9 g/dL (12.0-16.0); MEAN CORPUSCULAR HEMOGLOBIN 29.9 pg (28.0-32.0); MEAN CORPUSCULAR VOLUME 90.5 fL (81.0-99.0); MEAN PLATELET VOLUME 8.6 fl (7.4-10.4); PLATELET 177 x1000/uL (130-400); RED BLOOD CELL COUNT 3.32 mill/uL (4.2-5.4); RED CELL DISTRIBUTION WIDTH 15.3 % (11.6-14.6)
[2022-05-23 09:24] LABS: PHOSPHORUS 5.7 mg/dL (2.5-4.9)
[2022-05-23] MEDS: ACETAMINOPHEN 650MG/20.3ML UDC PO PRN (09:34)
[2022-05-23] MEDS: INSULIN GLARGINE 100 UNITS/ML SUBCUT SCH ×2 (09:37→22:03)
[2022-05-23 10:34] LABS: PLATELET ESTIMATE NORMAL
[2022-05-23 12:00] VITALS: BP 121/54
[2022-05-23 16:00] VITALS: BP 126/54
[2022-05-23 20:00] VITALS: BP 123/52
[2022-05-24] VITALS (7 sets, daily range): BP systolic 122–159; BP diastolic 52–72
[2022-05-24] MEDS: LATANOPROST 0.005% OPHTH DROPS 2.5ML LEFTEYE SCH ×2 (02:26→22:54)
[2022-05-24] MEDS: IPRATROPIUM/ALBUTEROL 0.5-3(2.5)MG/3ML NEB HHN SCH ×7 (04:00→23:25)
[2022-05-24] MEDS: BLOOD SUGAR DIAGNOSTIC STRIP TEST SCH ×4 (05:33→21:00)
[2022-05-24] MEDS: HYDRALAZINE HCL 100MG TABLET PO SCH ×3 (05:33→23:05)
[2022-05-24] MEDS: DORZOLAMIDE 2% OPHTH 10 ML BOTTLE LEFTEYE SCH ×3 (05:34→22:54)
[2022-05-24 06:57] LABS: HEMATOCRIT. 30.2 % (36.0-48.0); HEMOGLOBIN. 9.9 g/dL (12.0-16.0); MEAN CORPUSCULAR HEMOGLOBIN 29.7 pg (28.0-32.0); MEAN CORPUSCULAR VOLUME 90.1 fL (81.0-99.0); MEAN PLATELET VOLUME 8.4 fl (7.4-10.4); PLATELET 208 x1000/uL (130-400); RED BLOOD CELL COUNT 3.35 mill/uL (4.2-5.4); RED CELL DISTRIBUTION WIDTH 15.4 % (11.6-14.6)
[2022-05-24] MEDS: INSULIN LISPRO 100 UNITS/ML SUBCUT SCH ×4 (07:50→21:00)
[2022-05-24 08:03] LABS: PHOSPHORUS 5.5 mg/dL (2.5-4.9)
[2022-05-24] MEDS: ACETYLCYSTEINE 100MG/ML 10% VIAL 4ML INH SCH ×3 (08:05→23:25)
[2022-05-24] MEDS: INSULIN GLARGINE 100 UNITS/ML SUBCUT SCH ×2 (09:36→22:56)
[2022-05-24] MEDS: ATORVASTATIN CALCIUM 40MG TABLET PO SCH (09:38)
[2022-05-24] MEDS: AMLODIPINE 10MG TABLET PO SCH (09:38)
[2022-05-24] MEDS: FOLIC ACID/VITAMIN B COMP W-C TABLET PO SCH (09:38)
[2022-05-24] MEDS: LEVOTHYROXINE SODIUM 125MCG TABLET PO SCH (09:38)
[2022-05-24] MEDS: ASPIRIN 81MG TABLET PO SCH (09:38)
[2022-05-24] MEDS: OMEPRAZOLE 20MG CAPSULE EXTENDED RELEASE PO SCH (09:38)
[2022-05-24] MEDS: LABETALOL HCL 200MG TABLET PO SCH ×2 (09:38→22:54)
[2022-05-24] MEDS: FERROUS SULFATE 325MG TABLET PO SCH (09:38)
[2022-05-24] MEDS: GUAIFENESIN 600MG ER TABLET PO SCH ×2 (09:38→22:54)
[2022-05-24] MEDS: PIPERACILLIN/TAZOBACTAM 3.375 G in DEXTROSE 5% WATER 50 ML IV SCH ×2 (09:38→21:00)
[2022-05-24] MEDS: TIMOLOL MALEATE 0.5% OPHTH DROPS 5ML LEFTEYE SCH ×2 (09:46→22:55)
[2022-05-24] MEDS: SEVELAMER CARBONATE 800 MG TABLET PO SCH ×3 (09:48→18:08)
[2022-05-24 10:43] LABS: PLATELET ESTIMATE NORMAL
[2022-05-24] MEDS ORDERED: LEVO250T43 MT (16:35)
[2022-05-24] MEDS ORDERED: FLUT1DIS3 INH (16:35)
[2022-05-24] MEDS ORDERED: ALBU18HF2 IH (16:35)
[2022-05-25] VITALS: BP 124/52
[2022-05-25] MEDS: IPRATROPIUM/ALBUTEROL 0.5-3(2.5)MG/3ML NEB HHN SCH ×4 (03:01→16:24)
[2022-05-25 04:00] VITALS: BP 132/62
[2022-05-25] MEDS: HYDRALAZINE HCL 100MG TABLET PO SCH (05:43)
[2022-05-25] MEDS: DORZOLAMIDE 2% OPHTH 10 ML BOTTLE LEFTEYE SCH (05:43)
[2022-05-25] MEDS: BLOOD SUGAR DIAGNOSTIC STRIP TEST SCH ×2 (06:11→12:20)
[2022-05-25 07:18] LABS: BASOPHILS % 0.6 % (0.0-2.0); EOSINOPHILS % 2.9 % (0.0-5.0); HEMATOCRIT. 31.5 % (36.0-48.0); HEMOGLOBIN. 10.3 g/dL (12.0-16.0); LYMPHOCYTES % 7.6 % (20.0-50.0); MEAN CORPUSCULAR HEMOGLOBIN 29.5 pg (28.0-32.0); MEAN CORPUSCULAR VOLUME 90.7 fL (81.0-99.0); MEAN PLATELET VOLUME 8.2 fl (7.4-10.4); MONOCYTES % 9.1 % (2.0-8.0); NEUTROPHILS % 79.8 % (40.0-76.0); PLATELET 248 x1000/uL (130-400); RED BLOOD CELL COUNT 3.47 mill/uL (4.2-5.4); RED CELL DISTRIBUTION WIDTH 15.3 % (11.6-14.6)
[2022-05-25] MEDS: INSULIN LISPRO 100 UNITS/ML SUBCUT SCH ×2 (07:50→12:50)
[2022-05-25 08:00] VITALS: BP 163/62
[2022-05-25] MEDS: SEVELAMER CARBONATE 800 MG TABLET PO SCH ×2 (08:37→13:27)
[2022-05-25 08:38] LABS: PHOSPHORUS 6.1 mg/dL (2.5-4.9)
[2022-05-25] MEDS: LABETALOL HCL 200MG TABLET PO SCH (09:00)
[2022-05-25] MEDS: AMLODIPINE 10MG TABLET PO SCH (09:00)
[2022-05-25] MEDS: ACETYLCYSTEINE 100MG/ML 10% VIAL 4ML INH SCH ×2 (09:29→16:24)
[2022-05-25] MEDS: INSULIN GLARGINE 100 UNITS/ML SUBCUT SCH (10:36)
[2022-05-25] MEDS: FERROUS SULFATE 325MG TABLET PO SCH (10:37)
[2022-05-25] MEDS: OMEPRAZOLE 20MG CAPSULE EXTENDED RELEASE PO SCH (10:37)
[2022-05-25] MEDS: LEVOTHYROXINE SODIUM 125MCG TABLET PO SCH (10:37)
[2022-05-25] MEDS: FOLIC ACID/VITAMIN B COMP W-C TABLET PO SCH (10:37)
[2022-05-25] MEDS: GUAIFENESIN 600MG ER TABLET PO SCH (10:37)
[2022-05-25] MEDS: ATORVASTATIN CALCIUM 40MG TABLET PO SCH (10:38)
[2022-05-25] MEDS: ASPIRIN 81MG TABLET PO SCH (10:38)
[2022-05-25 12:00] VITALS: BP 158/61
[2022-05-25 16:00] VITALS: BP 151/56
[2022-05-26] MEDS ORDERED: LEVOFLOXACIN 250MG TABLET PO SCH (11:00)
== END 2022-05-25 17:27 | disposition home or self-care (01) | DRG 133 ==
LOC: ER 08:45 → 6WST 14:34 → EDBEDREQ 14:39 → ENRESERV 22:40
PROVIDERS: ADMIT Internal Medicine; ATTEND Internal Medicine
PROC: 5A1D70Z Performance of Urinary Filtration, Intermittent, Less than 6 Hours Per Day (ICD-10-PCS; principal; 2022-05-20)
PROC: 5A1D70Z Performance of Urinary Filtration, Intermittent, Less than 6 Hours Per Day (ICD-10-PCS; 2022-05-22)
DX: J96.01 Acute respiratory failure with hypoxia (principal); I13.2 Hypertensive heart and chronic kidney disease with heart failure and with stage 5 chronic kidney disease, or end stage renal disease; D72.10 Eosinophilia, unspecified; I27.20 Pulmonary hypertension, unspecified; I31.3 Pericardial effusion (noninflammatory); J18.9 Pneumonia, unspecified organism; E87.1 Hypo-osmolality and hyponatremia; I16.0 Hypertensive urgency; N18.6 End stage renal disease; M94.0 Chondrocostal junction syndrome [Tietze]; E11.22 Type 2 diabetes mellitus with diabetic chronic kidney disease; E87.8 Other disorders of electrolyte and fluid balance, not elsewhere classified; I50.32 Chronic diastolic (congestive) heart failure; E78.5 Hyperlipidemia, unspecified; E03.9 Hypothyroidism, unspecified; D64.9 Anemia, unspecified; E87.5 Hyperkalemia; K21.9 Gastro-esophageal reflux disease without esophagitis; E11.65 Type 2 diabetes mellitus with hyperglycemia; R51.9 Headache, unspecified; Z20.822 Contact with and (suspected) exposure to COVID-19; Z28.311 Partially vaccinated for COVID-19; Z99.2 Dependence on renal dialysis; Z79.4 Long term (current) use of insulin; Z86.16 Personal history of COVID-19; H40.9 Unspecified glaucoma
CPT/HCPCS: 36415; 71045; 71250; 80048; 80053; 80061; 82962; 83036; 83735; 83880; 84100; 84145; 84443; 84484; 85025; 86705; 86709; 86803; 87070; 87077; 87186; 87340; 87426; 93005; 93306; 94640; 99285; C9803; J1815; J2405; J2543; J7060; J7131; J7608

== ENCOUNTER 2022-12-01 17:00 | Inpatient (IN) | payer MEDICAID, OTHER ==
[~2022-12-01] VITALS: Ht 160 cm; Wt 57.6 kg
[~2022-12-01 17:00] MED LIST changes: +ALBU18HF2 IH; +FLUT1DIS3 INH; +KEPP500 MT; -LABE100T5 MT; +LABE100T9 MT
[2022-12-01] MEDS ORDERED: ASPIRIN 81MG TABLET PO ONE (17:30)
[2022-12-01 17:43] LABS: CHLORIDE 93 mEq/L (98-107)
[2022-12-01 17:45] LABS: HEMATOCRIT. 28.4 % (36.0-48.0); HEMOGLOBIN. 9.5 g/dL (12.0-16.0); MEAN CORPUSCULAR HEMOGLOBIN 30.7 pg (28.0-32.0); MEAN CORPUSCULAR VOLUME 91.8 fL (81.0-99.0); MEAN PLATELET VOLUME 8.2 fl (7.4-10.4); PLATELET 192 x1000/uL (130-400); RED CELL DISTRIBUTION WIDTH 15.5 % (11.6-14.6)
[2022-12-01 18:13] LABS: PLATELET ESTIMATE NORMAL
[2022-12-01] MEDS ORDERED: SODIUM CHLORIDE 0.9% 1,000 ML IV ONE (19:15)
[2022-12-01 22:00] VITALS: BP 118/61
[2022-12-01 22:30] VITALS: BP 118/61
[2022-12-02] VITALS (9 sets, daily range): BP systolic 127–187; BP diastolic 57–74
[2022-12-02] MEDS ORDERED: REN800 PO (01:28)
[2022-12-02] MEDS ORDERED: FERR325T30 PO (01:34)
[2022-12-02] MEDS ORDERED: MINO2.5T2 MT (01:34)
[2022-12-02] MEDS ORDERED: ATOR40TA70 MT (01:34)
[2022-12-02] MEDS ORDERED: NIFE-32 PO (01:34)
[2022-12-02] MEDS ORDERED: PANT40TA51 PO (01:34)
[2022-12-02] MEDS ORDERED: LEVO125T8 MT (01:34)
[2022-12-02] MEDS ORDERED: HYDR-4135 PO (01:34)
[2022-12-02] MEDS ORDERED: AMOX250S70 PO (01:38)
[2022-12-02] MEDS ORDERED: AZIT500T8 MT (01:38)
[2022-12-02] MEDS ORDERED: DEXTROSE 50% WATER 50ML SYRINGE IV PRN (02:00)
[2022-12-02] MEDS ORDERED: NALOXONE HCL 0.4MG/ML VIAL IV PRN (04:15)
[2022-12-02] MEDS: HYDRALAZINE HCL 50MG TABLET PO SCH ×4 (04:34→17:44)
[2022-12-02] MEDS: HYDROCODONE/ACETAMINOPHEN 10/325MG TABLET PO PRN ×3 (04:35→16:55)
[2022-12-02] MEDS ORDERED: *PATIENT'S OWN MEDICATION STORAGE XX SCH (05:45)
[2022-12-02] MEDS: LEVOTHYROXINE SODIUM 125MCG TABLET PO SCH (07:01)
[2022-12-02] MEDS: PANTOPRAZOLE 40MG DR TABLET PO SCH ×2 (07:01→17:45)
[2022-12-02] MEDS: BLOOD SUGAR DIAGNOSTIC STRIP TEST SCH ×4 (07:05→21:59)
[2022-12-02] MEDS: INSULIN LISPRO 100 UNITS/ML SUBCUT SCH ×4 (07:50→21:00)
[2022-12-02] MEDS ORDERED: HYDRALAZINE HCL 50MG TABLET PO SCH (09:00)
[2022-12-02] MEDS ORDERED: AMLODIPINE 10MG TABLET PO SCH (09:00)
[2022-12-02] MEDS: NIFEDIPINE XL 60MG TAB PO SCH (09:23)
[2022-12-02] MEDS: FERROUS SULFATE 325MG TABLET PO SCH (09:25)
[2022-12-02] MEDS: SEVELAMER CARBONATE 800 MG TABLET PO SCH ×3 (09:26→17:44)
[2022-12-02] MEDS: MINOXIDIL 2.5MG TABLET PO SCH ×2 (09:27→21:58)
[2022-12-02] MEDS: CLONIDINE 0.1MG TABLET PO PRN ×2 (13:32→21:58)
[2022-12-02] MEDS ORDERED: NITROGLYCERIN 0.4MG TABLET SL SL ONE (16:39)
[2022-12-02] MEDS ORDERED: IPRATROPIUM BROMIDE (0.02%) 0.5MG/2.5ML NEB HHN PRN (17:00)
[2022-12-02] MEDS ORDERED: ALBUTEROL (0.083%) 2.5MG/3ML NEB HHN PRN (17:00)
[2022-12-02] MEDS ORDERED: IPRATROPIUM/ALBUTEROL 0.5-3(2.5)MG/3ML NEB HHN PRN (17:00)
[2022-12-02 18:34] LABS: HEPATITIS B SURFACE ANTIGEN NEGATIVE
[2022-12-02] MEDS: ATORVASTATIN CALCIUM 40MG TABLET PO SCH (21:58)
[2022-12-02] MEDS: EPOETIN ALFA-EPBX 4,000 UNIT/ML VIAL SUBCUT SCH (21:59)
[2022-12-02] MEDS: NITROGLYCERIN 0.4MG TABLET SL SL PRN (22:06)
[2022-12-03] VITALS (14 sets, daily range): BP systolic 110–181; BP diastolic 50–78
[2022-12-03] MEDS: NITROGLYCERIN 0.4MG TABLET SL SL PRN (05:32)
[2022-12-03] MEDS: HYDROCODONE/ACETAMINOPHEN 10/325MG TABLET PO PRN ×3 (05:58→20:35)
[2022-12-03] MEDS: PANTOPRAZOLE 40MG DR TABLET PO SCH ×2 (06:32→17:42)
[2022-12-03] MEDS: LEVOTHYROXINE SODIUM 125MCG TABLET PO SCH (06:32)
[2022-12-03] MEDS: BLOOD SUGAR DIAGNOSTIC STRIP TEST SCH ×4 (07:35→21:00)
[2022-12-03] MEDS: INSULIN LISPRO 100 UNITS/ML SUBCUT SCH ×4 (07:50→20:37)
[2022-12-03] MEDS: SEVELAMER CARBONATE 800 MG TABLET PO SCH ×3 (09:00→17:42)
[2022-12-03] MEDS ORDERED: HYDR100T26 MT (09:24)
[2022-12-03] MEDS: FERROUS SULFATE 325MG TABLET PO SCH (10:34)
[2022-12-03] MEDS: MINOXIDIL 2.5MG TABLET PO SCH ×2 (10:35→20:18)
[2022-12-03] MEDS: NIFEDIPINE XL 60MG TAB PO SCH (10:35)
[2022-12-03] MEDS: CLONIDINE 0.1MG TABLET PO PRN ×2 (11:27→20:22)
[2022-12-03] MEDS ORDERED: HYDRALAZINE HCL 100MG TABLET PO SCH (13:00)
[2022-12-03] MEDS: LISINOPRIL 20MG TABLET PO SCH (15:21)
[2022-12-03] MEDS ORDERED: DIPHENHYDRAMINE 25MG CAPSULE PO NR (15:45)
[2022-12-03] MEDS: ATORVASTATIN CALCIUM 40MG TABLET PO SCH (20:17)
[2022-12-03] MEDS: METOPROLOL TARTRATE 25MG TABLET PO SCH (20:18)
[2022-12-04] VITALS (13 sets, daily range): BP systolic 129–162; BP diastolic 45–101
[2022-12-04] MEDS: LEVOTHYROXINE SODIUM 125MCG TABLET PO SCH (06:28)
[2022-12-04] MEDS: PANTOPRAZOLE 40MG DR TABLET PO SCH ×2 (06:28→19:55)
[2022-12-04] MEDS: BLOOD SUGAR DIAGNOSTIC STRIP TEST SCH ×4 (06:33→21:03)
[2022-12-04] MEDS: INSULIN LISPRO 100 UNITS/ML SUBCUT SCH ×4 (07:50→21:03)
[2022-12-04] MEDS: FERROUS SULFATE 325MG TABLET PO SCH (09:55)
[2022-12-04] MEDS: SEVELAMER CARBONATE 800 MG TABLET PO SCH ×3 (09:56→19:55)
[2022-12-04] MEDS: MINOXIDIL 2.5MG TABLET PO SCH ×2 (09:56→20:27)
[2022-12-04] MEDS: METOPROLOL TARTRATE 25MG TABLET PO SCH ×2 (09:56→20:27)
[2022-12-04] MEDS: NIFEDIPINE XL 60MG TAB PO SCH (09:56)
[2022-12-04] MEDS: LISINOPRIL 20MG TABLET PO SCH (09:56)
[2022-12-04] MEDS: HYDROCODONE/ACETAMINOPHEN 10/325MG TABLET PO PRN ×2 (10:21→20:02)
[2022-12-04 10:38] LABS: BASOPHILS % 1.9 % (0.0-2.0); EOSINOPHILS % 4.3 % (0.0-5.0); HEMATOCRIT. 25.8 % (36.0-48.0); HEMOGLOBIN. 8.7 g/dL (12.0-16.0); LYMPHOCYTES % 22.3 % (20.0-50.0); MEAN CORPUSCULAR HEMOGLOBIN 31.2 pg (28.0-32.0); MEAN CORPUSCULAR VOLUME 92.8 fL (81.0-99.0); MEAN PLATELET VOLUME 8.4 fl (7.4-10.4); MONOCYTES % 14.5 % (2.0-8.0); PLATELET 161 x1000/uL (130-400); RED BLOOD CELL COUNT 2.78 mill/uL (4.2-5.4); RED CELL DISTRIBUTION WIDTH 15.9 % (11.6-14.6)
[2022-12-04 15:39] LABS: BASOPHILS % 3.2 % (0.0-2.0); EOSINOPHILS % 3.7 % (0.0-5.0); HEMATOCRIT. 25.4 % (36.0-48.0); HEMOGLOBIN. 8.5 g/dL (12.0-16.0); LYMPHOCYTES % 20.7 % (20.0-50.0); MEAN CORPUSCULAR HEMOGLOBIN 31.2 pg (28.0-32.0); MEAN CORPUSCULAR VOLUME 93.1 fL (81.0-99.0); MONOCYTES % 14.5 % (2.0-8.0); NEUTROPHILS % 57.9 % (40.0-76.0); PLATELET 164 x1000/uL (130-400); RED BLOOD CELL COUNT 2.73 mill/uL (4.2-5.4); RED CELL DISTRIBUTION WIDTH 15.4 % (11.6-14.6)
[2022-12-04 15:49] LABS: PHOSPHORUS 3.5 mg/dL (2.5-4.9)
[2022-12-04] MEDS: ATORVASTATIN CALCIUM 40MG TABLET PO SCH (20:26)
[2022-12-04] MEDS: EPOETIN ALFA-EPBX 4,000 UNIT/ML VIAL SUBCUT SCH (20:28)
[2022-12-05] VITALS: BP 155/53
[2022-12-05 04:00] VITALS: BP_SYST 104; BP_SYST 155; BP_DIAS 47; BP_DIAS 64
[2022-12-05 06:23] LABS: HEMOGLOBIN. 8.8 g/dL (12.0-16.0); MEAN CORPUSCULAR HEMOGLOBIN 31.3 pg (28.0-32.0); MEAN PLATELET VOLUME 8.5 fl (7.4-10.4); PLATELET 163 x1000/uL (130-400); RED CELL DISTRIBUTION WIDTH 15.5 % (11.6-14.6)
[2022-12-05 06:47] LABS: PHOSPHORUS 4.3 mg/dL (2.5-4.9)
[2022-12-05] MEDS: BLOOD SUGAR DIAGNOSTIC STRIP TEST SCH ×2 (07:20→12:42)
[2022-12-05 08:00] VITALS: BP 162/49
[2022-12-05] MEDS: PANTOPRAZOLE 40MG DR TABLET PO SCH (08:14)
[2022-12-05] MEDS: LEVOTHYROXINE SODIUM 125MCG TABLET PO SCH (08:14)
[2022-12-05] MEDS: INSULIN LISPRO 100 UNITS/ML SUBCUT SCH ×2 (08:21→12:42)
[2022-12-05] MEDS: SEVELAMER CARBONATE 800 MG TABLET PO SCH ×2 (09:52→12:37)
[2022-12-05] MEDS: NIFEDIPINE XL 60MG TAB PO SCH (09:54)
[2022-12-05] MEDS: MINOXIDIL 2.5MG TABLET PO SCH (09:54)
[2022-12-05] MEDS: METOPROLOL TARTRATE 25MG TABLET PO SCH (09:55)
[2022-12-05] MEDS: FERROUS SULFATE 325MG TABLET PO SCH (09:55)
[2022-12-05] MEDS: LISINOPRIL 20MG TABLET PO SCH (09:55)
[2022-12-05 12:00] VITALS: BP 145/62
[2022-12-05 13:51] VITALS: BP 145/62
[2022-12-05] MEDS: HYDROCODONE/ACETAMINOPHEN 10/325MG TABLET PO PRN (13:51)
[2022-12-05 15:01] LABS: PLATELET ESTIMATE NORMAL
== END 2022-12-05 14:30 | disposition home health service (06) | DRG 194 ==
LOC: ER 17:00 → 6EST 19:36 → EDBEDREQ 19:43 → EDBEDREQSVC 19:43 → EDBEDREQTM 19:43 → ENRESERV 20:47
PROVIDERS: ADMIT Internal Medicine; ATTEND Internal Medicine
PROC: 5A1D70Z Performance of Urinary Filtration, Intermittent, Less than 6 Hours Per Day (ICD-10-PCS; principal; 2022-12-02)
PROC: 5A1D70Z Performance of Urinary Filtration, Intermittent, Less than 6 Hours Per Day (ICD-10-PCS; 2022-12-03)
PROC: 5A1D70Z Performance of Urinary Filtration, Intermittent, Less than 6 Hours Per Day (ICD-10-PCS; 2022-12-04)
DX: I13.2 Hypertensive heart and chronic kidney disease with heart failure and with stage 5 chronic kidney disease, or end stage renal disease (principal); J96.00 Acute respiratory failure, unspecified whether with hypoxia or hypercapnia; I31.39 Other pericardial effusion (noninflammatory); I27.20 Pulmonary hypertension, unspecified; N18.6 End stage renal disease; E87.1 Hypo-osmolality and hyponatremia; D63.1 Anemia in chronic kidney disease; I50.31 Acute diastolic (congestive) heart failure; E11.22 Type 2 diabetes mellitus with diabetic chronic kidney disease; E11.65 Type 2 diabetes mellitus with hyperglycemia; D72.819 Decreased white blood cell count, unspecified; H40.9 Unspecified glaucoma; E78.5 Hyperlipidemia, unspecified; D72.821 Monocytosis (symptomatic); E03.9 Hypothyroidism, unspecified; E78.00 Pure hypercholesterolemia, unspecified; J44.9 Chronic obstructive pulmonary disease, unspecified; Z99.2 Dependence on renal dialysis; Z79.899 Other long term (current) drug therapy
CPT/HCPCS: 36415; 71045; 80048; 80053; 82947; 82962; 83036; 83735; 84100; 84484; 85025; 86705; 86709; 86803; 87340; 90935; 93005; 93306; 99285; J0885; J1815; J7030; Q0163